=== PATIENT | male | born 1950 | race Caucasian/White ===

== ENCOUNTER 2018-08-15 19:42 | Inpatient (IN) ==
[2018-08-15 20:33] LABS: Basophils # (auto) 0.02 K/uL (0-0.2); Basophils % (auto) 0.3 %; Eosinophils # (auto) 0.12 K/uL (0-0.5); Eosinophils % (auto) 1.9 %; Hematocrit (blood only) 38.4 % (42-52); Immature Granulocytes # (auto) 0.02 K/uL (0.00-0.02); Immature Granulocytes % (auto) 0.3 %; Lymphocytes # (auto) 1.06 K/uL (1.2-3.4); Lymphocytes % (auto) 16.5 %; Mean Corpuscular Hgb Conc 33.9 g/dL (32-36); Mean Corpuscular Volume 90.6 fL (80-100); Mean Platelet Volume 11.2 fL (7.4-10.4); Monocytes # (auto) 0.62 K/uL (0.11-0.59); Monocytes % (auto) 9.7 %; Neutrophils # (auto) 4.58 K/uL (1.4-6.5); Neutrophils % (auto) 71.3 %; Platelet Count 133 K/uL (130-400); RDW Coefficient of Variation 13.4 % (11.5-14.5); RDW Standard Deviation 44.2 fL (36.4-46.3); Red Blood Count 4.24 M/uL (4.7-6.1); White Blood Count 6.42 K/uL (4.8-10.8)
[2018-08-15 20:41] LABS: Alanine Aminotransferase 24 U/L (12-78); Albumin Level 3.3 gm/dl (3.4-5.0); Aspartate Aminotransferase 18 U/L (15-37); BUN Creatinine Ratio 15.2 (10-20); Blood Urea Nitrogen 20 mg/dl (7-18); Calcium 8.8 mg/dl (8.5-10.1); Carbon Dioxide 28 mmol/L (21-32); Chloride 108 mmol/L (98-107); Est GFR (African American) 64.2; Est GFR (Non-African American) 55.4; Glucose 107 mg/dl (70-99); Magnesium 2.2 mg/dl (1.8-2.4); Potassium 3.5 mmol/L (3.5-5.1); Sodium 142 mmol/L (136-145)
--- NOTE | 2018-08-15 20:44 | CT Scan Report ---
CT head/brain wo con CT DOSE: 537.48 mGy.cm HISTORY: Trauma. Mental status change. fall, posterior impact TECHNIQUE: Multiaxial CT images of the head were performed without the use of intravenous contrast. A dose lowering technique was utilized adhering to the principles of ALARA. Comparison: None. Findings: The paranasal sinuses and mastoid air cells are clear. The calvarium and skull base are int act. The ventricles and sulci are within normal limits. There is no mass, hematoma, midline shift, or acute infarct. Impression: No acute intracranial abnormality. The above report was generated using voice recognition software. It may contain grammatical, syntax or spelling errors. Electronically signed by: Derrick Esteves M.D. 08/15/2018 8:43 PM
[2018-08-15 20:52] LABS: Albumin Globulin Ratio 1.2 (0.9-2); Alkaline Phosphatase 70 U/L (45-117); Bilirubin,Total 0.9 mg/dl (0.2-1); Globulin 2.7 gm/dl (2.5-4.0); Troponin I < 0.015 ng/ml (0-0.045)
--- NOTE | 2018-08-15 21:03 | XRay Report ---
XR ribs LT min 3V w CXR1V CLINICAL HISTORY: fall, left lat rib pain trauma. Pain. COMPARISON STUDY: No previous studies for comparison. FINDINGS: Probable nondisplaced cortical fracture anterior left 11th rib. This appears to be in the m idaxillary line. Remaining ribs are unremarkable. The lungs are considered clear. No evidence of pneu mothorax. IMPRESSION: Nondisplaced cortical fracture anterior left 11th rib. No evidence pneumothorax. The above report was generated using voice recognition software. It may contain grammatical, syntax or spelling errors. Electronically signed by: Derrick Esteves M.D. 08/15/2018 9:01 PM
[2018-08-15] MEDS ORDERED: MoRPHine SULFATE 4 MG/ML 1 ML CARP\\VIAL IV STA (21:16)
[2018-08-15] MEDS ORDERED: ONDANSETRON INJ 2 MG/ML 2 ML VIAL IV STA (21:16)
--- NOTE | 2018-08-15 22:51 | History & Physical Report ---
Date of Service August 15, 2018 Assessment & Plan (1) Syncope: Likely secondary to orthostasis given EMS account of low BP at home Rule out symptomatic bradycardia given history of chronic bradycardia Traumatic rib fracture secondary to fall CAD status post stent hx CVA hypertension, BP on the lower side Chronic anemia, hemoglobin at baseline past tobacco abuse OBS Medical telemetry Check orthostatic vitals, IVF hold antihypertensives for now TTE RE syncope Cardiology consult RE syncope, chronic bradycardia, home beta-alice use for CAD hx Analgesia, Lidoderm patch trial for traumatic left rib fracture DVT prophylaxis. Lovenox subcu Full code History of Present Illness Chief Complaint: Syncope, fall Primary Care Provider: Derrick Vasquez MD History obtained from patient and records. Medical history significant for CAD status post stent, CVA, hypertension, chronic bradycardia, past tobacco abuse, chronic anemia baseline hemoglobin 13. Recent confinement August 2009 for CVA. Patient was cooking at home yesterday when he felt dizzy ,lightheaded, subsequently fell backwards. Possible blackout as per patient. Patient woke up with achy pleuritic left-sided chest pain following fall. No SOB. No tongue biting, no incontinence. No previous episodes. Patient thinks he did not eat too well yesterday secondary to being busy with housework in the morning. Patient was awake when found him after she heard a thump from the other room. BP noted to be low as per EMS account upon arrival. 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 Allergies Allergy/AdvReac Type Severity Reaction Status Date / Time No Known Allergies Allergy Verified 08/15/18 20:07 Home Medications Home Medications Medication Instructions Recorded Confirmed Type aspirin 325 mg PO DAILY 08/15/18 08/15/18 History citalopram 20 mg PO DAILY 08/15/18 08/15/18 History gabapentin 300 mg PO TID 08/15/18 08/15/18 History lisinopril 10 mg PO DAILY 08/15/18 08/15/18 History metoprolol succinate 25 mg PO DAILY 08/15/18 08/15/18 History rosuvastatin 40 mg PO DAILY 08/15/18 08/15/18 History Past Med/Surg History Medical History CVA (cerebral vascular accident) Heart attack CAD (coronary artery disease) Surgical History History of coronary artery stent placement Social History Preferred Language: Malaysian Communication Ability: Effective Automotive Assembler Required: No Beliefs That Will Affect Care: None Current Living Situation: Spouse Other Information That Helps Us Care for You: No Feels Safe at Home: Yes Safety Concerns: Feels Safe At This Time Smoking Status: Former smoker Hx Alcohol Use: No Hx Substance Use: No Review of Systems As per HPI, all 10 systems reviewed, all other ROS negative Physical Exam Vital Signs (Past 24 Hours): Last Vital Signs Temp 36.5 C 08/15/18 19:48 Pulse 48 L 08/15/18 22:47 Resp 16 08/15/18 22:47 BP 109/73 08/15/18 22:47 Pulse Ox 96 08/15/18 22:47 Physical Exam: GENERAL: Comfortable, pleasant, no respiratory distress SKIN: Pallor, warm HEENT: Partial alopecia, bespectacled, pale palpebral conjunctivae, no ptosis, dry buccal mucosa NECK : Supple, no tenderness CHEST : Decreased breath sounds, tenderness left chest wall HEART : Bradycardic, no obvious murmurs ABDOMEN: Some distention, nontender EXTREMITIES : No LE swelling/tenderness, no other conspicuous deformities noted NEUROLOGIC : Coherent, no facial asymmetry, no other gross focality Results & Data Laboratory Results Laboratory Results WBC 6.42 K/uL (4.8-10.8) 08/15/18 19:40 RBC 4.24 M/uL (4.7-6.1) L 08/15/18 19:40 Hgb 13.0 g/dL (14.0-18.0) L 08/15/18 19:40 Hct 38.4 % (42-52) L 08/15/18 19:40 MCV 90.6 fL (80-100) 08/15/18 19:40 MCH 30.7 pg (25-34) 08/15/18 19:40 MCHC 33.9 g/dL (32-36) 08/15/18 19:40 RDW Std Deviation 44.2 fL (36.4-46.3) 08/15/18 19:40 RDW Coeff of Renetta 13.4 % (11.5-14.5) 08/15/18 19:40 Plt Count 133 K/uL (130-400) 08/15/18 19:40 MPV 11.2 fL (7.4-10.4) H 08/15/18 19:40 Immature Gran % (Auto) 0.3 % 08/15/18 19:40 Neut % (Auto) 71.3 % 08/15/18 19:40 Lymph % (Auto) 16.5 % 08/15/18 19:40 Hickman % (Auto) 9.7 % 08/15/18 19:40 Eos % (Auto) 1.9 % 08/15/18 19:40 Baso % (Auto) 0.3 % 08/15/18 19:40 Immature Gran # (Auto) 0.02 K/uL (0.00-0.02) 08/15/18 19:40 Neut # (Auto) 4.58 K/uL (1.4-6.5) 08/15/18 19:40 Lymph # (Auto) 1.06 K/uL (1.2-3.4) L 08/15/18 19:40 Hickman # (Auto) 0.62 K/uL (0.11-0.59) H 08/15/18 19:40 Eos # (Auto) 0.12 K/uL (0-0.5) 08/15/18 19:40 Baso # (Auto) 0.02 K/uL (0-0.2) 08/15/18 19:40 Sodium 142 mmol/L (136-145) 08/15/18 19:40 Potassium 3.5 mmol/L (3.5-5.1) 08/15/18 19:40 Chloride 108 mmol/L (98-107) H 08/15/18 19:40 Carbon Dioxide 28 mmol/L (21-32) 08/15/18 19:40 Anion Gap 5.0 (3-11) 08/15/18 19:40 BUN 20 mg/dl (7-18) H 08/15/18 19:40 Creatinine 1.32 mg/dl (0.6-1.4) 08/15/18 19:40 Est Cr Clr Drug Dosing 57.0 ml/min 08/15/18 19:40 Est GFR ( Amer) 64.2 08/15/18 19:40 Est GFR (Non-Af Amer) 55.4 08/15/18 19:40 BUN/Creatinine Ratio 15.2 (10-20) 08/15/18 19:40 Glucose 107 mg/dl (70-99) H 08/15/18:40 Calcium 8.8 mg/dl (8.5-10.1) 08/15/18:40 Magnesium 2.2 mg/dl (1.8-2.4) 08/15/18:40 Total Bilirubin 0.9 mg/dl (0.2-1) 08/15/18 19:40 AST 18 U/L (15-37) 08/15/18 19:40 ALT 24 U/L (12-78) 08/15/18 19:40 Alkaline Phosphatase 70 U/L (45-117) 08/15/18:40 Troponin I < 0.015 ng/ml (0-0.045) 08/15/18 19:40 Total Protein 6.0 gm/dl (6.4-8.2) L 08/15/18:40 Albumin 3.3 gm/dl (3.4-5.0) L 08/15/18:40 Globulin 2.7 gm/dl (2.5-4.0) 08/15/18 19:40 Albumin/Globulin Ratio 1.2 (0.9-2) 08/15/18 19:40 TSH 4.360 uIu/ml (0.300-4.500) 08/15/18 19:40 Diagnostic Findings Chest x-ray showed nondisplaced cortical fracture anterior left 11th rib. No evidence pneumothorax. CT head: No acute pathology EKG as per my interpretation : Rate 50, sinus bradycardia, T wave flattening, septal leads (1) Syncope Syncope type: unspecified Qualified Code(s): R55 - Syncope and collapse
[2018-08-15] MEDS ORDERED: HYDROmorphone INJ 0.5 MG/0.5 ML SYR IV PRN (22:54)
[2018-08-15] MEDS ORDERED: POTASSIUM CHLORIDE 20 MEQ TABCR PO STA (22:54)
[2018-08-15] MEDS ORDERED: ACETAMINOPHEN 325 MG TAB PO PRN (22:54)
[2018-08-15] MEDS ORDERED: KETOROLAC TROMETHAMINE 15 MG/ML VIAL IV ONE (22:54)
[2018-08-15] MEDS ORDERED: PROCHLORPERAZINE 5 MG in SYRINGE 4 ML IV PRN (22:54)
[2018-08-15] MEDS ORDERED: KETOROLAC TROMETHAMINE 15 MG/ML VIAL IV PRN (23:00)
[2018-08-15] MEDS ORDERED: ATROPINE SULFATE 0.1 MG/ML 5ML SYR IV PRN (23:00)
[2018-08-15] MEDS ORDERED: LACTATED RINGER'S 1,000 ML IV ONE (23:45)
[2018-08-16 00:34] LABS: Prothrombin Time 10.6 Seconds (9.0-12.0)
[2018-08-16] MEDS: LIDOCAINE 5% 1 PATCH TD SCH ×2 (00:45→21:17)
--- NOTE | 2018-08-16 02:58 | Emergency Department Note ---
Entered by Savannah Thomas acting as a scribe for Miguel A Treadwell MD ED Provider Note CHIEF COMPLAINT: Fall HISTORY OF PRESENT ILLNESS: The patient is a 68 year old presenting to the Emergency Department complaining of an episode of a fall starting prior to arrival. The nurse reports that the patient was found on his bedroom floor. She states that the patient fell from a standing position and hit his head off of a chair. She notes that the patient did not lose consciousness but his head hurts. The patient reports that he felt dizzy very abruptly and fell. He states that he hit the back of his head upon his fall and now the back of his head hurts. He notes that his left ribs hurt. The patients reports that the patient has been falling more frequently and she partially attributes this to his right knee pain. She states that the patients right knee pain is chronic and that he usually smokes marijuana that helps his pain. She adds that the patient smoked marijuana PLATINUM SMITH for his knee pain . The patient reports that he received no treatments PLATINUM SMITH for his current symptoms. He states that he normally takes Aspirin and Metoprolol. He notes that he sees Dr. Pedro Graham PCP and Dr. Milian [facility] comprehensive ophthalmologist. Pt denies LOC, fevers, chills, diaphoresis, visual changes, neck pain, chest pain, breathing difficulties, nausea, vomiting, abdominal pain, back pain, melena, hematochezia, urinary symptoms, numbness, lymphadenopathy, rash, or other complaints. REVIEW OF SYSTEMS: See HPI for pertinent positives and negatives. A total of ten systems were reviewed and were otherwise negative. PMHx/PSHx: CVA, CAD, Heart attack. History of coronary artery stent placement. SOCIAL HISTORY: Patient lives at home. Former smoker. PHYSICAL EXAM: GENERAL: Awake, alert, well-appearing, in no distress HENT: Normocephalic. Oropharynx unremarkable. Small hematoma on the occiput. EYES: Normal conjunctiva. Sclera non-icteric. NECK: Inspection normal. Non-tender. Supple. No nuchal rigidity. FROM. No masses. RESPIRATORY: Clear to auscultation. No wheezes. No rales. Normal respiratory effort. CARDIAC: Bradycardic rate. Normal rhythm. No murmurs. No rubs. Extremities warm and well perfused. Pulses equal. No JVD. GI: Soft, non-distended. No tenderness to palpation. No rebound or guarding. No masses. RECTAL: Deferred. MUSCULOSKELETAL: Left anterior lateral rib tenderness. The back is symmetrical on inspection without obvious abnormality. There is no CVA tenderness to palpati on. No joint edema. LOWER EXTREMITIES: Calves are equal size bilaterally and non-tender. No edema. N o discoloration. NEURO: Normal sensorium. No sensory or motor deficits noted. SKIN: No rash or jaundice noted. EMERGENCY DEPARTMENT COURSE: 1946: The patient was evaluated in room A12B, and a complete history and physical examination were performed. 2199: I reevaluated the patient at this time. 2329: I reviewed the patient's case with Dr. Tommie Graham Hospitalist. He will evaluate the patient for further management. MEDICAL DECISION MAKING: The patient's history was concerning for abrupt onset of dizziness and nearly passing out. Patient also struck his head and left ribs. Differential diagnosis: Etiologies such as infection, hypoglycemia, electrolyte abnormalities, cardiac sources, intracerebral event, toxicologic, neurologic, as well as others were entertained. Physical examination: As above. No neck pain. ER treatment provided: IV morphine IV Zofran On reassessment the patient felt better. Diagnostics interpretation by me: ECG: No acute ischemia or dysrhythmia. The labs revealed an unremarkable CBC and chemistry panel. Imaging studies: Rib series reveals a left-sided rib fracture. CT imaging of the head is negative. The patient had abrupt onset of dizziness and near syncope. He was found to be hypotensive per EMS. Currently he is doing much better. The patient unfortunately suffered a rib fracture. He was treated with morphine and Zofran for this. Given the sudden onset of symptoms causing his collapse I discussed further evaluation in the hospital. The patient was in agreement. Consultation: A consultation was placed with the hospitalist. The case was discussed and diagnostics were reviewed. The patient was evaluated in the ER for further treatment. IMPRESSION: Syncope, Hypotension, Closed Head Injury, Left rib fracture PLAN: Being Evaluated by Hospitalist The scribe's documentation has been prepared under my direction and personally reviewed by me in its entirety. I confirm that the note above accurately reflects all work, treatment, procedures, and medical decision making performed by me. Impression & Plan Syncope, Hypotension, CHI (closed head injury), Left rib fracture Past Med/Surg History Medical History CVA (cerebral vascular accident) Heart attack CAD (coronary artery disease) Surgical History History of coronary artery stent placement Social History Preferred Language: Khmer Communication Ability: Effective Criminal Justice Instructor Required: No Beliefs That Will Affect Care: None Current Living Situation: Spouse Other Information That Helps Us Care for You: No Feels Safe at Home: Yes Safety Concerns: Feels Safe At This Time Smoking Status: Former smoker Hx Alcohol Use: No Hx Substance Use: No Results & Data Vital Signs Vital Signs - 24 hr 08/15/18 19:48 08/15/18 21:00 08/15/18 21:23 Temperature 36.5 C Temperature Source Oral Sepsis Recent Fever Within 48 Hours No Sepsis New/Unexplained Change in Mental Status No Sepsis Action Taken by Nursing No Action Required Pulse Rate - Lying 49 L Pulse Rate - Sitting 59 L Pulse Rate - Standing 60 Pulse Rate 53 L Pulse Rate [Right Finger] 78 Pulse Rhythm Regular Pulse Rhythm [Right Finger] Pulse Strength Normal Pulse Strength [Right Finger] Respiratory Rate 16 18 Respiratory Effort / Characteristics Non-Labored Spontaneous Respiratory Depth Normal Normal Respiratory Pattern Regular Blood Pressure - Lying 100/62 Blood Pressure - Sitting 100/71 Blood Pressure- Standing 102/57 L Blood Pressure 107/62 Blood Pressure [Right Arm] Blood Pressure [Right Radial Artery] 108/62 Blood Pressure Mean 77 Blood Pressure Mean [Right Arm] Blood Pressure Mean [Right Radial Artery] 77 Blood Pressure Position Sitting Blood Pressure Position [Right Radial Artery] Pulse Oximetry 98 95 Oxygen Delivery Method Room Air Room Air 08/15/18 21:28 08/15/18 22:47 08/15/18 23:41 Temperature 36.4 C L Temperature Source Oral Sepsis Recent Fever Within 48 Hours Sepsis New/Unexplained Change in Mental Status Sepsis Action Taken by Nursing Pulse Rate - Lying Pulse Rate - Sitting Pulse Rate - Standing Pulse Rate Pulse Rate [Right Finger] 60 48 L 51 L Pulse Rhythm Pulse Rhythm [Right Finger] Regular Regular Pulse Strength Pulse Strength [Right Finger] Normal Normal Respiratory Rate 16 16 24 Respiratory Effort / Characteristics Non-Labored Spontaneous Non-Labored Spontaneous Respiratory Depth Normal Normal Respiratory Pattern Regular Regular Blood Pressure - Lying Blood Pressure - Sitting Blood Pressure- Standing Blood Pressure Blood Pressure [Right Arm] 160/93 H Blood Pressure [Right Radial Artery] 102/57 L 109/73 160/93 H Blood Pressure Mean Blood Pressure Mean [Right Arm] 115 Blood Pressure Mean [Right Radial Artery] 72 85 115 Blood Pressure Position Blood Pressure Position [Right Radial Artery] Standing Sitting Pulse Oximetry 97 96 96 Oxygen Delivery Method Room Air Room Air Room Air 08/16/18 00:28 Temperature Temperature Source Sepsis Recent Fever Within 48 Hours Sepsis New/Unexplained Change in Mental Status Sepsis Action Taken by Nursing Pulse Rate - Lying Pulse Rate - Sitting Pulse Rate - Standing Pulse Rate 48 L Pulse Rate [Right Finger] Pulse Rhythm Pulse Rhythm [Right Finger] Pulse Strength Pulse Strength [Right Finger] Respiratory Rate Respiratory Effort / Characteristics Respiratory Depth Respiratory Pattern Blood Pressure - Lying Blood Pressure - Sitting Blood Pressure- Standing Blood Pressure Blood Pressure [Right Arm] Blood Pressure [Right Radial Artery] Blood Pressure Mean Blood Pressure Mean [Right Arm] Blood Pressure Mean [Right Radial Artery] Blood Pressure Position Blood Pressure Position [Right Radial Artery] Pulse Oximetry Oxygen Delivery Method Home Medications Current Medication List: was personally reviewed by me Laboratory Data Attestation: I reviewed the patient's lab results. Result diagrams: 08/15/18 19:40 08/15/18 19:40 Lab Results 08/15/18 08/15/18 08/15/18 Range/Units 19:40 19:40 19:40 WBC 6.42 (4.8-10.8) K/uL RBC 4.24 L (4.7-6.1) M/uL Hgb 13.0 L (14.0-18.0) g/dL Hct 38.4 L (42-52) % MCV 90.6 (80-100) fL MCH 30.7 (25-34) pg MCHC 33.9 (32-36) g/dL RDW Std Deviation 44.2 (36.4-46.3) fL RDW Coeff of Renetta 13.4 (11.5-14.5) % Plt Count 133 (130-400) K/uL MPV 11.2 H (7.4-10.4) fL Immature Gran % (Auto) 0.3 % Neut % (Auto) 71.3 % Lymph % (Auto) 16.5 % Waller % (Auto) 9.7 % Eos % (Auto) 1.9 % Baso % (Auto) 0.3 % Immature Gran # (Auto) 0.02 (0.00-0.02) K/uL Neut # (Auto) 4.58 (1.4-6.5) K/uL Lymph # (Auto) 1.06 L (1.2-3.4) K/uL Waller # (Auto) 0.62 H (0.11-0.59) K/uL Eos # (Auto) 0.12 (0-0.5) K/uL Baso # (Auto) 0.02 (0-0.2) K/uL PT 10.6 (9.0-12.0) Seconds INR 1.0 (0.9-1.1) Sodium 142 (136-145) mmol/L Potassium 3.5 (3.5-5.1) mmol/L Chloride 108 H (98-107) mmol/L Carbon Dioxide 28 (21-32) mmol/L Anion Gap 5.0 (3-11) BUN 20 H (7-18) mg/dl Creatinine 1.32 (0.6-1.4) mg/dl Est Cr Clr Drug Dosing 57.0 ml/min Est GFR ( Amer) 64.2 Est GFR (Non-Af Amer) 55.4 BUN/Creatinine Ratio 15.2 (10-20) Glucose 107 H (70-99) mg/dl Calcium 8.8 (8.5-10.1) mg/dl Magnesium 2.2 (1.8-2.4) mg/dl Total Bilirubin 0.9 (0.2-1) mg/dl AST 18 (15-37) U/L ALT 24 (12-78) U/L Alkaline Phosphatase 70 (45-117) U/L Troponin I < 0.015 (0-0.045) ng/ml Total Protein 6.0 L (6.4-8.2) gm/dl Albumin 3.3 L (3.4-5.0) gm/dl Globulin 2.7 (2.5-4.0) gm/dl Albumin/Globulin Ratio 1.2 (0.9-2) TSH 4.360 (0.300-4.500) uIu/ml Administered Medications Lactated Ringer's (Lr) 1,000 mls @ 80 mls/hr IV .[id number] ONE Stop: 08/16/18 12:14 Last Admin: 08/16/18 00:45 Dose: 80 mls/hr Documented by: [id number] Ketorolac Tromethamine (Toradol) 15 mg IV Q6H PRN PRN Reason: Pain Stop: 08/20/18 22:59 Last Admin: 08/16/18 00:38 Dose: 15 mg Documented by: [id number] Lidocaine (Lidoderm 5%) 1 patch TD HS HOMERO Stop: 09/14/18 23:44 Last Admin: 08/16/18 00:45 Dose: 1 patch Documented by: [id number] Discontinued Medications Ketorolac Tromethamine (Toradol) 15 mg IV NOW ONE Stop: 08/15/18 22:55 Last Admin: 08/16/18 00:38 Dose: Not Given Documented by: [id number] Morphine Sulfate (Morphine Sulfate) 4 mg IV NOW STA Stop: 08/15/18 21:17 Last Admin: 08/15/18 21:28 Dose: 4 mg Documented by: [id number] Ondansetron HCl (Zofran) 4 mg IV NOW STA Stop: 08/15/18 21:17 Last Admin: 08/15/18 21:28 Dose: 4 mg Documented by: [id number] Potassium Chloride (Klor-Con M20) 40 meq PO NOW STA Stop: 08/15/18 22:55 Last Admin: 08/16/18 01:38 Dose: 40 meq Documented by: [id number] Imaging Data Radiologist's Impression: Radiology results as stated below per my review and the radiologist's interpretation: CT head/brain wo con CT DOSE: 537.48 mGy.cm HISTORY: Trauma. Mental status change. fall, posterior impact TECHNIQUE: Multiaxial CT images of the head were performed without the use of intravenous contrast. A dose lowering technique was utilized adhering to the principles of ALARA. Comparison: None. Findings: The paranasal sinuses and mastoid air cells are clear. The calvarium and skull base are intact. The ventricles and sulci are within normal limits. There is no mass, hematoma, midline shift, or acute infarct. Impression: No acute intracranial abnormality. The above report was generated using voice recognition software. It may contain grammatical, syntax or spelling errors. Electronically signed by: Derrick Esteves M.D. 08/15/2018 8:43 PM XR ribs LT min 3V w CXR1V CLINICAL HISTORY: fall, left lat rib pain trauma. Pain. COMPARISON STUDY: No previous studies for comparison. FINDINGS: Probable nondisplaced cortical fracture anterior left 11th rib. This appears to be in the midaxillary line. Remaining ribs are unremarkable. The lungs are considered clear. No evidence of pneumothorax. IMPRESSION: Nondisplaced cortical fracture anterior left 11th rib. No evidence pneumothorax. The above report was generated using voice recognition software. It may contain grammatical, syntax or spelling errors. Electronically signed by: Derrick Esteves M.D. 08/15/2018 9:01 PM ECG Data Attestation: I personally reviewed and interpreted this ECG as follows: Indication: weakness Rate (beats per minute): 51 Rhythm: sinus bradycardia Findings: no PAC, no PVC, no ST depression and no ST elevation Blood Pressure Blood Pressure Findings: Low blood pressure Blood Pressure Disposition: further management by hospitalist Discharge Plan Visit Data *Final* Discharge Date/Time: 08/15/18 23:14 Chief Complaint: Fall Stated Complaint: FALLS, HYPOTENSION, HEAD PAIN ED Provider: Miguel A Treadwell Discharge Problem: Syncope, Hypotension, CHI (closed head injury), Left rib fracture Patient Disposition: Admitted As Inpatient Discharge Instructions Interventions: ED Discharge Assessment Last Done: 08/15/18 23:14 Discharge Problem: Syncope Qualifiers: Syncope type: unspecified Qualified Code(s): R55 - Syncope and collapse Hypotension Qualifiers: Hypotension type: unspecified hypotension type Qualified Code(s): I95.9 - Hypotension, unspecified CHI (closed head injury) Qualifiers: Encounter type: initial encounter Qualified Code(s): S09.90XA - Unspecified injury of head, initial encounter Left rib fracture Qualifiers: Encounter type: initial encounter Rib fracture type: single rib Fracture type: closed Qualified Code(s): S22.32XA - Fracture of one rib, left side, initial encounter for closed fracture The scribe's documentation has been prepared under my direction and personally reviewed by me in its entirety. I confirm that the note above accurately reflects all work, treatment, procedures, and medical decision making performed by me.
[2018-08-16 07:29] LABS: Basophils # (auto) 0.01 K/uL (0-0.2); Basophils % (auto) 0.2 %; Eosinophils # (auto) 0.23 K/uL (0-0.5); Eosinophils % (auto) 5.1 %; Hematocrit (blood only) 36.5 % (42-52); Hemoglobin 12.3 g/dL (14.0-18.0); Immature Granulocytes # (auto) 0.01 K/uL (0.00-0.02); Immature Granulocytes % (auto) 0.2 %; Lymphocytes # (auto) 1.45 K/uL (1.2-3.4); Lymphocytes % (auto) 31.9 %; Mean Corpuscular Hgb Conc 33.7 g/dL (32-36); Mean Corpuscular Volume 89.9 fL (80-100); Mean Platelet Volume 11.2 fL (7.4-10.4); Monocytes # (auto) 0.45 K/uL (0.11-0.59); Monocytes % (auto) 9.9 %; Neutrophils # (auto) 2.39 K/uL (1.4-6.5); Neutrophils % (auto) 52.7 %; Platelet Count 108 K/uL (130-400); RDW Coefficient of Variation 13.5 % (11.5-14.5); RDW Standard Deviation 44.1 fL (36.4-46.3); Red Blood Count 4.06 M/uL (4.7-6.1); White Blood Count 4.54 K/uL (4.8-10.8)
[2018-08-16 07:57] LABS: BUN Creatinine Ratio 16.8 (10-20); Calcium 7.9 mg/dl (8.5-10.1); Creatinine Clr Calc Pharmacy 67.9 ml/min; Est GFR (Non-African American) 69.9; Potassium 4.3 mmol/L (3.5-5.1)
[2018-08-16] MEDS ORDERED: PERFLUTREN LIPID MICROSPHERE (DEFINITY) IV ONE (08:18)
[2018-08-16] MEDS: TRAMADOL HCL 50 MG TABLET PO PRN ×2 (08:48→15:43)
[2018-08-16] MEDS: GABAPENTIN 300 MG CAP PO SCH ×3 (08:49→21:17)
[2018-08-16] MEDS: ENOXAPARIN INJ 30 MG/0.3 ML SYR SQ SCH (08:50)
[2018-08-16] MEDS: CITALOPRAM 20 MG TAB PO SCH (08:50)
[2018-08-16] MEDS: ROSUVASTATIN CALCIUM 20 MG TAB PO SCH (08:50)
[2018-08-16] MEDS: ASPIRIN 325 MG ECTAB PO SCH (08:51)
--- NOTE | 2018-08-16 09:37 | Cardiology Consultation ---
Date of Consultation August 16, 2018 Assessment & Plan (1) Syncope: He had an episode of severe presyncope or possibly syncope resulting in a fall, this was preceded by about 1 week of intermittent dizziness and falling. He apparently has a long history of bradycardia but I do not know if it is worse now. His heart rate is quite low and I suspect this contributed to the episode. It may be that there was some other factor as well (such as dehydration) but at the moment bradycardia seems to most likely underlying cause. It does not sound as though it was a tacky arrhythmia. An echo is pending, I would like to see his left ventricular function and look for wall motion abnormalities. There is no evidence that he had an acute cardiac event. (2) CAD (coronary artery disease): He has coronary disease based on history with stent placement 19 years ago at [facility]. Clinically he has been stable with no exertional symptoms. We will review his echo for left ventricular function and wall motion abnormalities. Based on his electrocardiogram I do not see a prior myocardial infarction although they do not always show up on electrocardiography. (3) Sinus bradycardia: He has a long history of sinus bradycardia however until now has not had symptoms suggesting symptomatic sinus bradycardia. Now I suspect his symptoms are related to it although I cannot be sure. In any case it would likely keep him from having some compensatory recent heart rate. With presyncope and falling and his heart rate as low as it is I think we need to consider a pacemaker. I agree with discontinuation of metoprolol, if his heart rate continues to be low (he is on a very low dose of metoprolol so I suspect we will not make a lot of difference) that I would recommend pacemaker implantation. History of Present Illness Reason for Consultation: Presyncope or possibly syncope Attending Physician: Paulo Henriquez MD History of Present Illness This is a very pleasant 68-year-old gentleman who saw Dr. simms 19 years ago after a heart attack by his history. That is long enough ago that I do not have records, including in our office. He describes having severe chest discomfort which he prayed would go away, it did not so he came into the emergency room and was sent to [facility] where he had a catheterization and 2 stents. All of this is per his history. He has been following with his PCP since with no recurrence of the symptoms. He is quite active, he has never had exertional chest discomfort and overall feels well in that regard. Over the last week or so he has been having intermittent lightheadedness, then he was standing and felt very faint and lightheaded and fell over. He recalls falling down but he tells me he was powerless to do anything about it. It sounds as though this was a severe presyncopal event rather than true syncope although it was close. He has been taking metoprolol succinate 25 mg daily and was noted to be in sinus bradycardia here. He is reported to have been hypotensive when EMS arrived to bring him to the hospital, but I do not see any documentation of his blood pressure. Since admission he has felt well, he has no lightheadedness or dizziness but has remained in bed. Allergies Allergy/AdvReac Type Severity Reaction Status Date / Time No Known Allergies Allergy Verified 08/15/18 20:07 Home Medications Home Medications Medication Instructions Recorded Confirmed Type aspirin 325 mg PO DAILY 08/15/18 08/15/18 History citalopram 20 mg PO DAILY 08/15/18 08/15/18 History gabapentin 300 mg PO TID 08/15/18 08/15/18 History lisinopril 10 mg PO DAILY 08/15/18 08/15/18 History metoprolol succinate 25 mg PO DAILY 08/15/18 08/15/18 History rosuvastatin 40 mg PO DAILY 08/15/18 08/15/18 History Patient History Medical History CVA (cerebral vascular accident) Heart attack CAD (coronary artery disease) Surgical History History of coronary artery stent placement Social History Preferred Language: [place] Communication Ability: Effective Neonatal Pediatric Nurse Required: No Beliefs That Will Affect Care: None Current Living Situation: Spouse Other Information That Helps Us Care for You: No Feels Safe at Home: Yes Safety Concerns: Feels Safe At This Time Smoking Status: Former smoker Hx Alcohol Use: No Hx Substance Use: No Review of Systems Notable for lightheadedness and dizziness for about a week, no palpitations, one episode of presyncope or syncope as described. No exertional symptoms, no dyspnea on exertion or exertional chest pain. No orthopnea or PND or peripheral edema. No GI complaints, no bleeding. No neurologic complaints such as TIA or stroke symptoms. Other systems negative. Physical Exam Vital Signs (Past 24 Hours): Last Vital Signs Temp 36.8 C 08/16/18 04:00 Pulse 43 L 08/16/18 07:26 Resp 20 08/16/18 04:00 BP 135/82 08/16/18 09:07 Pulse Ox 98 08/16/18 04:00 Physical Exam: Constitutional: Alert, cooperative and in no distress. HEENT: Unremarkable Neck: No jugular venous distention, carotid pulses are normal and equal bilaterally without bruits. Pulmonary: Clear to auscultation bilaterally. Cardiac: Regular rhythm with no murmur, gallop or rub. Abdomen: Soft, nontender with normal bowel sounds. Extremities: No edema. Distal pulses intact. Neurologic: No focal findings. Gait is steady. Skin: No rash, ecchymoses or petechiae. Results & Data Diagnostic Findings ECG: On admission sinus rhythm with a heart rate of 57 bpm. This morning sinus rhythm with a heart rate of 51 bpm. No acute changes. Telemetry: Predominantly sinus bradycardia, overnight in the 40s with a low of 39 bpm. (1) Syncope Syncope type: unspecified Qualified Code(s): R55 - Syncope and collapse
--- NOTE | 2018-08-16 09:55 | Hospitalist Progress Note ---
Date of Service August 16, 2018 Delayed entry Date of service as noted above Assessment & Plan (1) Syncope: Possibly from orthostasis, bradycardia Lisinopril and metoprolol on hold Echocardiogram pending Arabic Professor consulted rib fracture, left hip secondary to fall Continue pain control Incentive spirometry CAD status post stent Continue aspirin Metoprolol on hold secondary to bradycardia hx CVA Continue aspirin hypertension BP on the lower side, management as noted above Chronic anemia, hemoglobin at baseline past tobacco abuse DVT prophylaxis. Lovenox subcu Full code Disposition Discharge to home medically stable and cleared by fire extinguisher charger Subjective Follow-up for syncope, rib fracture Resting in bed, not in distress Denies chestpain , shortness of breath, dizziness, presyncope Reports moderate to severe left rib pain Worse with movement No other pain in his body No other symptoms Physical Exam Vital Signs (Past 24 Hours): Last Vital Signs Temp 36.8 C 08/16/18 04:00 Pulse 43 L 08/16/18 07:26 Resp 20 08/16/18 04:00 BP 135/82 08/16/18 09:07 Pulse Ox 98 08/16/18 04:00 Physical Exam: General- oriented x 3, not in distress, speaks in sentences with no effort or accessory muscle use Head- atraumatic Eyes- PERRL, EOMI, anicteric ENT- oropharynx clear Neck- supple, no JVD, no adenopathy, no thyromegaly; carotids +2/2, no bruits appreciated Lungs- clear to auscultation bilaterally, no rales/wheezes Chest-mild tenderness on the left lateral rib area Heart-bradycardic , regular rhythm; no murmur, no gallop, no rub appreciated Abdomen- normal bowel sounds, nondistended, soft, nontender, no masses or hepatosplenomegaly Extremities- no pretibial edema, no calf tenderness; peripheral pulses intact Neuro- alert, oriented x 3; CN 2-12 grossly intact; motor 5/5 bilaterally; sensation 100% on all extremities; no other gross focal neurologic deficits Skin- warm & dry Results & Data Laboratory Results Laboratory Results - last 24 hr 08/16/18 21:15 Urine Color Yellow Urine Appearance Clear Urine pH 5.0 Ur Specific [place] 1.029 Urine Protein Negative Urine Glucose (UA) Negative Urine Ketones Negative Urine Blood Negative Urine Nitrite Negative Urine Bilirubin Negative Urine Urobilinogen Negative Ur Leukocyte Esterase Negative (1) Syncope Syncope type: unspecified Qualified Code(s): R55 - Syncope and collapse
[2018-08-16] MEDS: ACETAMINOPHEN 65 ML IV SCH ×2 (13:31→21:13)
[2018-08-16] MEDS ORDERED: INFLUENZA ADMINISTRATION CHARGE ONE (15:15)
[2018-08-16] MEDS ORDERED: PNEUMOCOCCAL POLYSACCHARIDES 25 MCG/0.5 ML VIAL/SYR IM ONE (15:15)
[2018-08-16] MEDS ORDERED: INFLUENZA VIRUS QUAD VACCINE 0.5 ML SYR IM ONE (15:15)
[2018-08-16] MEDS ORDERED: PNEUMOCOCCAL ADMINISTRATION CHARGE ONE (15:15)
[2018-08-16 22:08] LABS: Appearance Urine Clear (Clear); Bilirubin Urine Negative (Negative); Blood Urine Negative (Negative); Color Urine Yellow; Glucose Urine UA Negative (Negative); Ketones Urine Negative (Negative); Leukocyte Esterase Urine Negative (Negative); Nitrite Urine Negative (Negative); Protein Urine Negative (Negative); Specific Gravity Urine 1.029 (1.000-1.030); Urobilinogen Urine Negative (Negative)
[2018-08-17] MEDS: ACETAMINOPHEN 65 ML IV SCH ×3 (03:45→19:41)
[2018-08-17] MEDS: CITALOPRAM 20 MG TAB PO SCH (07:58)
[2018-08-17] MEDS: ASPIRIN 325 MG ECTAB PO SCH (07:58)
[2018-08-17] MEDS: GABAPENTIN 300 MG CAP PO SCH ×3 (07:58→21:56)
[2018-08-17] MEDS: ROSUVASTATIN CALCIUM 20 MG TAB PO SCH (07:59)
[2018-08-17] MEDS: TRAMADOL HCL 50 MG TABLET PO PRN (08:00)
[2018-08-17] MEDS: ENOXAPARIN INJ 30 MG/0.3 ML SYR SQ SCH (08:03)
--- NOTE | 2018-08-17 13:24 | Cardiology Progress Note ---
Date of Service August 17, 2018 Assessment & Plan (1) Syncope: He had an episode of severe presyncope or possibly syncope resulting in a fall, this was preceded by about 1 week of intermittent dizziness and falling. He apparently has a long history of bradycardia but I do not know if it is worse now. His heart rate is quite low and I suspect this contributed to the episode. It may be that there was some other factor as well (such as dehydration) but at the moment bradycardia seems to be the most likely underlying cause. It does not sound as though it was a tachyarrhythmia. An echo is unremarkable. There is no evidence that he had an acute cardiac event. (2) CAD (coronary artery disease): He has coronary disease based on history with stent placement 19 years ago at [place]. Clinically he has been stable with no exertional symptoms. Based on his electrocardiogram I do not see a prior myocardial infarction although they do not always show up on electrocardiography. (3) Sinus bradycardia: He has a long history of sinus bradycardia however until now has not had symptoms suggesting symptomatic sinus bradycardia. Now I suspect his symptoms were related to it although I cannot be sure. In any case beta-blockade or intrinsic sinus node dysfunction would likely keep him from having some compensatory increase in heart rate. With presyncope and falling and his heart rate as low as it is I think we need to consider a pacemaker. His heart rate has really not changed with discontinuation of metoprolol, and it was a very low dose. He would prefer not to have a pacemaker implanted now but is willing to consider it in the future. As long as we are not going to implant a pacemaker I see no reason to keep him here in the hospital. I can make sure that he comes in for 2-week follow-up visit if he goes home, but I suspect he will need a pacemaker at some point in the future. Subjective He has been feeling very well, he is not been very active but has had no further lightheadedness or dizziness since admission. Physical Exam Vital Signs (Past 24 Hours): Last Vital Signs Temp 36.4 C L 08/17/18 12:00 Pulse 46 L 08/17/18 12:00 Resp 18 08/17/18 12:00 BP 165/91 H 08/17/18 12:00 Pulse Ox 97 08/17/18 12:00 Physical Exam: Constitutional: Alert, cooperative and in no distress. Pulmonary: Clear to auscultation bilaterally. Cardiac: Regular slow rhythm with no murmur, gallop or rub. Abdomen: Soft, nontender with normal bowel sounds. Extremities: No edema. Skin: No rash, ecchymoses or petechiae. Results & Data Diagnostic Findings Telemetry: He continues to have sinus bradycardia, the heart rate is often in the 40s even at rest and in the high 30s at night. (1) Syncope Syncope type: unspecified Qualified Code(s): R55 - Syncope and collapse
--- NOTE | 2018-08-17 13:35 | Hospitalist Progress Note ---
Date of Service August 17, 2018 delayed entry date of service as noted above Assessment & Plan (1) Syncope: (1) Syncope: likely secondary to Symptomatic bradycardia Lisinopril and metoprolol on hold Echocardiogram noted Television Repairman consulted- Dr. Mancilla- recommends Pacemaker Placement- patient agreeable 11th rib fracture, left hip secondary to fall pain improving Continue pain control encouraged Incentive spirometry CAD status post stent Continue aspirin Metoprolol on hold secondary to bradycardia hx CVA Continue aspirin hypertension Lisinopril resumed Chronic anemia, hemoglobin at baseline past tobacco abuse DVT prophylaxis. Lovenox subcu Full code Disposition Discharge to home medically stable and cleared by nylon machine operator Subjective Follow-up for syncope, rib fracture resting in bed, comfortable denies dizziness, chest pain, palpitations rib apin improving, no dyspnea no other symptoms Physical Exam Vital Signs (Past 24 Hours): Last Vital Signs Temp 36.4 C L 08/17/18 12:00 Pulse 46 L 08/17/18 12:00 Resp 18 08/17/18 12:00 BP 165/91 H 08/17/18 12:00 Pulse Ox 97 08/17/18 12:00 Physical Exam: General- oriented x 3, not in distress, speaks in sentences with no effort or accessory muscle use Eyes- anicteric Neck- no JVD Lungs- clear breath sounds bilaterally, no rales/wheezes Heart-bradycardic, regular rhythm; no murmurs Abdomen- normal bowel sounds, nondistended, soft, nontender Extremities- no pretibial edema, no calf tenderness Neuro- alert, oriented x 3; no gross focal neurologic deficits Skin- warm & dry (1) Syncope Syncope type: unspecified Qualified Code(s): R55 - Syncope and collapse
[2018-08-17] MEDS: LISINOPRIL 10 MG TAB PO SCH (16:08)
[2018-08-17] MEDS: LIDOCAINE 5% 1 PATCH TD SCH (21:57)
[2018-08-18] MEDS: ACETAMINOPHEN 65 ML IV SCH ×3 (04:20→20:02)
[2018-08-18] MEDS ORDERED: CEFAZOLIN 2000MG 2,000 MG/15 ML SYR IV SCH ×2 (06:00)
[2018-08-18] MEDS: GABAPENTIN 300 MG CAP PO SCH ×3 (08:11→20:44)
[2018-08-18] MEDS: CITALOPRAM 20 MG TAB PO SCH (08:11)
[2018-08-18] MEDS: ASPIRIN 325 MG ECTAB PO SCH (08:12)
[2018-08-18] MEDS: LISINOPRIL 10 MG TAB PO SCH (08:12)
[2018-08-18] MEDS: ROSUVASTATIN CALCIUM 20 MG TAB PO SCH (08:12)
[2018-08-18] MEDS: TRAMADOL HCL 50 MG TABLET PO PRN ×2 (08:17→15:41)
--- NOTE | 2018-08-18 08:51 | Cardiology Progress Note ---
Date of Service August 18, 2018 Assessment & Plan (1) Syncope: He had an episode of severe presyncope or possibly syncope resulting in a fall, this was preceded by at least 1 week of intermittent dizziness and falling. He apparently has a long history of bradycardia but I do not know if it is worse now. His heart rate is quite low and I suspect this contributed to the episode. It may be that there was some other factor as well (such as dehydration) but at the moment bradycardia seems to be the most likely underlying cause. It does not sound as though it was a tachyarrhythmia and he has had no other arrhythmia on monitoring. An echo is unremarkable. There is no evidence that he had an acute cardiac event. (2) CAD (coronary artery disease): He has coronary disease based on his history with stent placement 19 years ago at [place]. Clinically he has been stable with no exertional symptoms. Based on his electrocardiogram I do not see a prior myocardial infarction although they do not always show up on electrocardiography. (3) Sinus bradycardia: He has a long history of sinus bradycardia however until recently has not had symptoms suggesting symptomatic sinus bradycardia. Now I suspect his symptoms were related to it although I cannot be sure. In any case beta- blockade or intrinsic sinus node dysfunction would likely keep him from having some compensatory increase in heart rate. With presyncope and falling and his heart rate as low as it is I think we need to consider a pacemaker. His heart rate has really not changed with discontinuation of metoprolol, and it was a very low dose. He has agreed to pacemaker implantation. I discussed the indications, procedure, risks and alternatives of pacemaker implantation with him and he understands and agrees to proceed. Consent obtained. I discussed sedation with him as well and he is agreeable. Consent obtained. Subjective No further dizziness or falling. He has agreed to pacemaker implantation today. Physical Exam Vital Signs (Past 24 Hours): Last Vital Signs Temp 36.7 C 08/18/18 07:54 Pulse 45 L 08/18/18 07:54 Resp 20 08/18/18 07:54 BP 161/84 H 08/18/18 07:54 Pulse Ox 95 08/18/18 07:54 Physical Exam: Constitutional: Alert, cooperative and in no distress. Pulmonary: Clear to auscultation bilaterally. Cardiac: Regular slow rhythm with no murmur, gallop or rub. Abdomen: Soft, nontender with normal bowel sounds. Extremities: No edema. Skin: No rash, ecchymoses or petechiae. Results & Data Diagnostic Findings Telemetry: Continued sinus bradycardia, heart rate in the 40s typically (1) Syncope Syncope type: unspecified Qualified Code(s): R55 - Syncope and collapse
[2018-08-18] MEDS: LACTATED RINGER'S 1,000 ML IV SCH (09:07)
--- NOTE | 2018-08-18 09:09 | Pre Anesthesia Assessment ---
Date of Service August 18, 2018 Pre Sedation Assessment Vital Signs Temp Pulse Pulse Pulse Resp BP BP 08/18/18 07:54 36.7 C 45 L 20 161/84 H 08/18/18 04:08 36.8 C 46 L 18 157/92 H 08/17/18 23:49 36.6 C 46 L 16 138/80 08/17/18 22:20 44 L 08/17/18 19:17 36.6 C 47 L 20 165/86 H 08/17/18 16:00 36.6 C 47 L 18 144/86 H 08/17/18 15:54 48 L 08/17/18 12:00 36.4 C L 46 L 18 165/91 H Pulse Ox 08/18/18 07:54 95 08/18/18 04:08 94 08/17/18 23:49 97 08/17/18 22:20 08/17/18 19:17 96 08/17/18 16:00 96 08/17/18 15:54 08/17/18 12:00 97 Cardiovascular RRR, no murmur, no edema + bradycardic Respiratory normal respiratory effort, lungs clear to auscultation Pre-Sedation Airway Assessment Smoking Status: Former smoker Hx Sleep Apnea: No Hx Difficult Intubation: No Short, Thick Neck: No Thyromental Distance: > or= 3.5 Finger Breadths Mallampati Class: I Class III NPO Status Date of Last Intake of Fluids: 08/17/18 Date of Last Intake of Solid Food: 08/17/18 Procedure Planning Contraindications for Sedation: none Current Medications Reviewed: Yes Notes The planned sedation has been discussed with the patient. Informed Consent was obtained. I have identified the patient, determined the appropriateness of sedation and have assessed the patient immediately prior to the procedure. All medicine(s) and interventions are by my order.
[2018-08-18] MEDS ORDERED: BACITRACIN OINT 0.9 GM PKT ONE (09:28)
[2018-08-18] MEDS ORDERED: BACITRACIN INJ 50,000 UNIT VIAL ONE (09:29)
[2018-08-18] MEDS ORDERED: LIDOCAINE HCL 1% 20 ML VIAL ONE (09:29)
[2018-08-18] MEDS ORDERED: MIDAZOLAM HCL 5 MG/ML 1 ML VIAL ONE (09:31)
[2018-08-18] MEDS ORDERED: fentaNYL citrate 100 MCG/2 ML VIAL ONE (09:31)
[2018-08-18] MEDS ORDERED: CEFAZOLIN 250 MG/ML 1 GM VIAL ONE (09:35)
[2018-08-18] MEDS ORDERED: ACETAMINOPHEN 325 MG TAB PO PRN (11:12)
--- NOTE | 2018-08-18 11:12 | Operative Report ---
Post Operative Report Pre & Post Diagnosis Operation Date: 08/18/18 08:00 Preoperative diagnosis: Symptomatic sinus bradycardia Postoperative diagnosis: Same Procedure Operation Date: 08/18/18 08:00 Actual Procedures p Pacer with A/V Leads (Dual) - Jose Mancilla MD Surgeon Jose Mancilla MD Framing Mechanic None Estimated Blood Loss 30 Findings Consistent with Post-Op Diagnosis Good lead position, good measurements Specimens None Complications none Disposition Accompanied Patient To Recovery: No Disposition: PCU Description of Procedure After obtaining informed consent for the procedure, the patient was brought to the laboratory and prepped and draped in the standard sterile manner. The left prepectoral region was anesthetized with 1% lidocaine local anesthetic and left axillary venipuncture was performed by percutaneous technique and a guidewire placed through the left subclavian vein into the superior vena cava. The area was further infiltrated with 1% lidocaine local anesthetic and a 5 cm incision was made parallel to the left clavicle and 2 cm below it and carried down to the anterior pectoralis fascia. A pacemaker pocket was formed by blunt dissection anterior to the pectoralis fascia and a bacitracin-soaked sponge (50,000 units in 50 cc normal saline solution) was placed in the pocket. An 8 [employer] Medtronic lead introducer was placed over the guidewire into the left subclavian vein, the dilator and guidewire were removed and a bipolar active fixation steroid tipped ventricular lead was advanced through the introducer into the superior vena cava. A guidewire was placed through the introducer and the introducer was stripped from the lead and guidewire. Another 8 [place] Medtronic lead introducer was placed over the guidewire into the left subclavian vein, the dilator and guidewire were removed and a bipolar active fixation steroid tipped atrial lead was advanced through the introducer into the superior vena cava. A guidewire was placed back through the introducer and the introducer was stripped from the lead and guidewire. Using a curved stylette the ventricular lead was advanced through the right ventricular outflow tract into the pulmonary artery and then using a straight stylette was positioned in the right ventricular apex. The screw was extended fixing the lead in position. Pacing and sensing thresholds were evaluated in bipolar configuration and are recorded on the implant data sheet. Using a curved stylette the atrial lead was positioned in the region of the atrial appendage and the screw extended fixing the lead in position. Pacing and sensing thresholds were evaluated in bipolar configuration and are recorded on the implant data sheet. Once the leads were in position they were attached to the anterior pectoralis fascia using 2 sutures of 2-0 silk around each lead collar. The bacitracin- soaked sponge was removed from the pocket, hemostasis was obtained, the pacemaker was attached to the leads and placed in the pocket with the leads coiled beneath it. The incision was closed with a running double subcutaneous closure of 3-0 Vicryl absorbable suture, followed by running subcuticular skin closure of 4-0 Vicryl absorbable suture. Bacitracin ointment was placed on the incision and a dressing applied. I attest to the content of the Intraoperative Record and any orders documented therein. Any exceptions are noted below.
[2018-08-18] MEDS: ACETAMINOPHEN W/CODEINE #3 1 TAB PO PRN (12:55)
[2018-08-18] MEDS: METOPROLOL SUCC 25MG EXT REL TAB PO SCH (13:05)
--- NOTE | 2018-08-18 15:45 | Hospitalist Progress Note ---
Date of Service August 18, 2018 Assessment & Plan (1) Syncope: Syncope: Likely secondary to Symptomatic bradycardia Lisinopril and metoprolol are on hold Echocardiogram noted Comb Winder consulted- Dr. Mancilla- recommended ppm placement Status post permanent pacemaker placement today Patient has been doing fine following the procedure Will observe in ICU 11th rib fracture, left hip secondary to fall pain improving Continue pain control encouraged Incentive spirometry Denies any shortness of breath CAD status post stent Continue aspirin Metoprolol on hold secondary to bradycardia And restart beta-alice hx CVA Continue aspirin Hypertension Lisinopril resumed Chronic anemia, hemoglobin at baseline past tobacco abuse DVT prophylaxis. Lovenox subcu Full code Disposition Discharge to home medically stable and cleared by briquette maker Like to be discharged tomorrow Subjective 08/18 The patient was seen and examined in ICU He is status post stem pacemaker placement for bradycardia with syncope Has been feeling a lot better and denies any symptoms following the procedure Wants to come out of bed Physical Exam Vital Signs (Past 24 Hours): Last Vital Signs Temp 36.7 C 08/18/18 07:54 Pulse 60 08/18/18 14:30 Resp 18 08/18/18 14:30 BP 145/95 H 08/18/18 14:30 Pulse Ox 95 08/18/18 14:30 Physical Exam: No apparent distress at rest Constitutional: WD/WN, vitals as above well developed Eyes: PERRL, conjunctivae normal, anicteric sclerae ENMT: external ear and nose normal, oropharynx normal Neck: trachea midline, no thyromegaly Respiratory: Auscultation: lungs clear to auscultation bilaterally and + diminished lung sounds Left anterior upper chest wall is tender following pacemaker implantation Cardiovascular: Rate/Rhythm: regular rate and regular rhythm Heart Sounds: normal S1 and normal S2 Gastrointestinal (Abdomen): Inspection/Auscultation: abdomen normal to inspection and normal bowel sounds Percussion/Palpation: abdomen soft; abdomen nontender Neurologic: Alert, awake and oriented x3 Results & Data Medications Administered Current Inpatient Medications Acetaminophen (Tylenol) 650 mg PO Q4H PRN PRN Reason: Pain or Fever Stop: 09/14/18 22:53 Acetaminophen (Tylenol) 650 mg PO Q4H PRN PRN Reason: Mild pain (rating 1,2,3) Stop: 09/17/18 11:11 Acetaminophen/Codeine Phosphate (Tylenol W/Codeine #3) 1 - 2 tab PO Q4H PRN PRN Reason: Moderate-Severe Pain Stop: 09/17/18 11:11 Last Admin: 08/18/18 12:55 Dose: 1 tab Documented by: Aspirin (Ecotrin) 325 mg PO DAILY [facility] Stop: 09/15/18 08:59 Last Admin: 08/18/18 08:12 Dose: 325 mg Documented by: Atropine Sulfate (Atropine Sulfate) 0.5 mg IV Q3M PRN PRN Reason: symptomatic bradycardia Stop: 09/14/18 22:59 Citalopram Hydrobromide (Celexa) 20 mg PO DAILY [facility] Stop: 09/15/18 08:59 Last Admin: 08/18/18 08:11 Dose: 20 mg Documented by: Gabapentin (Neurontin) 300 mg PO TID [facility] Stop: 09/15/18 08:59 Last Admin: 08/18/18 14:33 Dose: 300 mg Documented by: Hydromorphone HCl (Dilaudid) 0.25 mg IV Q3H PRN PRN Reason: Pain Stop: 08/29/18 22:53 Prochlorperazine 5 mg/ Syringe 5 mls @ 5 mls/min IV Q6H PRN PRN Reason: Nausea And Vomiting Stop: 09/14/18 22:53 Acetaminophen (Ofirmev) 65 mls @ 200 mls/hr IV Q8H [facility] Stop: 09/15/18 11:59 Last Infusion: 08/18/18 13:43 Dose: Infused Documented by: Lactated Ringer's (Lr) 1,000 mls @ 15 mls/hr IV .Q24H [facility] Stop: 08/21/18 00:39 Last Admin: 08/18/18 09:07 Dose: 15 mls/hr Documented by: Cefazolin Sodium (Ancef 2000mg) 2,000 mg in 15 mls @ 3.75 mls/min IV PREOP [facility]; Protocol Stop: 08/18/18 18:00 Last Admin: 08/18/18 11:59 Dose: Not Given Documented by: Ketorolac Tromethamine (Toradol) 15 mg IV Q6H PRN PRN Reason: Pain Stop: 08/20/18 22:59 Last Admin: 08/16/18 00:38 Dose: 15 mg Documented by: Lidocaine (Lidoderm 5%) 1 patch TD HS [facility] Stop: 09/14/18 23:44 Last Admin: 08/17/18 21:57 Dose: 1 patch Documented by: Lisinopril (Zestril) 10 mg PO QAM [facility] Stop: 09/16/18 14:29 Last Admin: 08/18/18 08:12 Dose: 10 mg Documented by: Metoprolol Succinate (Toprol Xl) 25 mg PO DAILY [facility] Stop: 09/17/18 11:14 Last Admin: 08/18/18 13:05 Dose: 25 mg Documented by: Miscellaneous (Remove Lidoderm Patch) [facility] Stop: 09/15/18 10:29 Last Admin: 08/18/18 08:12 Dose: 1 ea Documented by: Rosuvastatin Calcium (Crestor) 40 mg PO DAILY [facility] Stop: 09/15/18 08:59 Last Admin: 08/18/18 08:12 Dose: 40 mg Documented by: Tramadol HCl (Ultram) 25 - 50 mg PO Q4H PRN PRN Reason: Pain Stop: 09/14/18 22:53 Last Admin: 08/18/18 08:17 Dose: 50 mg Documented by: (1) Syncope Syncope type: unspecified Qualified Code(s): R55 - Syncope and collapse
--- NOTE | 2018-08-18 16:17 | Post Anesthesia Assessment ---
Date of Service August 18, 2018 Post Sedation Assessment Vital Signs Temp Pulse Pulse Pulse Pulse Resp BP 08/18/18 14:30 60 18 145/95 H 08/18/18 14:00 60 18 138/84 08/18/18 13:30 60 18 168/100 H 08/18/18 12:57 60 18 160/89 H 08/18/18 12:45 60 18 162/90 H 08/18/18 12:27 60 18 175/102 H 08/18/18 12:19 60 18 170/101 H 08/18/18 11:45 60 16 173/105 H 08/18/18 11:30 60 16 178/98 H 08/18/18 11:15 60 16 146/97 H 08/18/18 11:10 60 60 16 146/97 H 08/18/18 08:00 45 L 08/18/18 07:54 36.7 C 45 L 20 161/84 H 08/18/18 04:08 36.8 C 46 L 18 157/92 H 08/17/18 23:49 36.6 C 46 L 16 138/80 08/17/18 22:20 44 L 08/17/18 19:17 36.6 C 47 L 20 165/86 H Pulse Ox 08/18/18 14:30 95 08/18/18 14:00 96 08/18/18 13:30 95 08/18/18 12:57 98 08/18/18 12:45 97 08/18/18 12:27 96 08/18/18 12:19 97 08/18/18 11:45 96 08/18/18 11:30 96 08/18/18 11:15 96 08/18/18 11:10 96 08/18/18 08:00 08/18/18 07:54 95 08/18/18 04:08 94 08/17/18 23:49 97 08/17/18 22:20 08/17/18 19:17 96 Recovery Score Activity: Moves 4 extremities Respiration: Deep Breath/Cough Circulation: +/-20% PreAnes Value Consciousness: Fully Awake Oxygen Saturation: > 92% On Room Air Post Anesthesia Score: 10 Discharge Sedation Level of Care: Fast Track Phase II Post Sedation Plan On clinical assessment, the patient appears to have tolerated the sedation without complications. Patient is recovering as anticipated. Patient will continue to be monitored by nursing and may be discharged when sedation discharge criteria are met per below protocol. Upon Completions of procedure and additional 15 minutes continue every 5 minute vital signs and the P.A.R. score; then discharge to a Phase I or Fast Track to Phase II per the following guidelines: * Discharge Patient to appropriate Phase II area if PAR is 8 or greater or return to pre- procedure baseline. The post - procedure orders will be as directed. * If PAR score is less than 8 or not return to pre-procedure baseline then patient will follow Phase I monitoring till PAR is reached for Phase II. The Phase I may be done in procedure room or may call to secure a Phase I area. * If naloxone or flumazenil are used for reversal, hold in Phase I for continued monitoring from when last reversal dose was given for a minimum of 60 minutes or longer pending the nurse and/or physician discretion of patient condition before discharge to Phase II. Please call the Sedation Physician to re-evaluate and complete post-note for discharge to Phase II area. Do NOT discharge from procedure sedation or Phase 1 until post- sedation evaluation note is complete by procedure /sedation MD Sedation Discharge Instructions to be given to the patient at discharge to home.
[2018-08-18] MEDS: LIDOCAINE 5% 1 PATCH TD SCH (20:43)
[2018-08-19] MEDS: TRAMADOL HCL 50 MG TABLET PO PRN (01:40)
[2018-08-19] MEDS: ACETAMINOPHEN 65 ML IV SCH (03:32)
[2018-08-19] MEDS: LACTATED RINGER'S 1,000 ML IV SCH (03:54)
[2018-08-19 05:11] LABS: Basophils # (auto) 0.01 K/uL (0-0.2); Basophils % (auto) 0.2 %; Eosinophils # (auto) 0.17 K/uL (0-0.5); Eosinophils % (auto) 3.5 %; Hematocrit (blood only) 39.2 % (42-52); Hemoglobin 13.4 g/dL (14.0-18.0); Immature Granulocytes # (auto) 0.01 K/uL (0.00-0.02); Immature Granulocytes % (auto) 0.2 %; Lymphocytes # (auto) 1.14 K/uL (1.2-3.4); Lymphocytes % (auto) 23.3 %; Mean Corpuscular Hgb Conc 34.2 g/dL (32-36); Mean Corpuscular Volume 89.3 fL (80-100); Mean Platelet Volume 11.4 fL (7.4-10.4); Monocytes # (auto) 0.44 K/uL (0.11-0.59); Neutrophils # (auto) 3.13 K/uL (1.4-6.5); Neutrophils % (auto) 63.8 %; Platelet Count 122 K/uL (130-400); RDW Coefficient of Variation 13.4 % (11.5-14.5); RDW Standard Deviation 43.9 fL (36.4-46.3); Red Blood Count 4.39 M/uL (4.7-6.1)
[2018-08-19 05:31] LABS: BUN Creatinine Ratio 17.1 (10-20); Calcium 8.2 mg/dl (8.5-10.1); Creatinine Clr Calc Pharmacy 64.9 ml/min; Est GFR (African American) 76.7; Est GFR (Non-African American) 66.2; Magnesium 2.1 mg/dl (1.8-2.4); Potassium 4.2 mmol/L (3.5-5.1)
--- NOTE | 2018-08-19 06:41 | XRay Report ---
XR chest 2V routine CLINICAL HISTORY: EXACT TIME ORDERED Evaluate for pneumothorax and l COMPARISON STUDY: 08/15/2017 FINDINGS: Placement of a permanent bipolar cardiac pacemaker. Leads in good position. No evidence for pneumothorax. IMPRESSION: Cardiac pacemaker placed. Leads in good position. No evidence for pneumothorax. The above report was generated using voice recognition software. It may contain grammatical, syntax or spelling errors. Electronically signed by: Derrick Esteves M.D. 08/19/2018 6:40 AM
[2018-08-19] MEDS: ASPIRIN 325 MG ECTAB PO SCH (07:27)
[2018-08-19] MEDS: LISINOPRIL 10 MG TAB PO SCH (07:27)
[2018-08-19] MEDS: GABAPENTIN 300 MG CAP PO SCH ×2 (07:28→12:50)
[2018-08-19] MEDS: CITALOPRAM 20 MG TAB PO SCH (07:28)
[2018-08-19] MEDS: ROSUVASTATIN CALCIUM 20 MG TAB PO SCH (07:28)
[2018-08-19] MEDS: METOPROLOL SUCC 25MG EXT REL TAB PO SCH (07:28)
[2018-08-19] MEDS: ACETAMINOPHEN W/CODEINE #3 1 TAB PO PRN (07:28)
--- NOTE | 2018-08-19 09:18 | Cardiology Progress Note ---
Date of Service August 19, 2018 Assessment & Plan (1) Syncope: He had an episode of severe presyncope or possibly syncope resulting in a fall, this was preceded by at least 1 week of intermittent dizziness and falling. He apparently has a long history of bradycardia but I do not know if it is worse now. His heart rate is quite low and I suspect this contributed to the episode. It may be that there was some other factor as well (such as dehydration) but at the moment bradycardia seems to be the most likely underlying cause. It does not sound as though it was a tachyarrhythmia and he has had no other arrhythmia on monitoring. An echo is unremarkable. There is no evidence that he had an acute cardiac event. Hopefully with a pacemaker in place he will have no further episodes. (2) CAD (coronary artery disease): He has coronary disease based on his history with stent placement 19 years ago at [place]. Clinically he has been stable with no exertional symptoms. Based on his electrocardiogram I do not see a prior myocardial infarction although they do not always show up on electrocardiography. (3) Sinus bradycardia: He has a long history of sinus bradycardia however until recently has not had symptoms suggesting symptomatic sinus bradycardia. Now I suspect his symptoms were related to it although I cannot be sure. In any case beta- blockade or intrinsic sinus node dysfunction would likely keep him from having some compensatory increase in heart rate. With presyncope and falling and his heart rate as low as it is I think we need to consider a pacemaker. His heart rate has really not changed with discontinuation of metoprolol, and it was a very low dose. (4) Artificial cardiac pacemaker: He is doing very well post pacemaker yesterday, the site looks good, he feels good and the pacer is working well. He is stable for discharge. I will arrange follow-up in 2 days. Subjective He feels well today, no significant incisional discomfort, he was walking and felt well. No shortness of breath or chest pain. Physical Exam Vital Signs (Past 24 Hours): Last Vital Signs Temp 36.7 C 08/19/18 08:00 Pulse 60 08/19/18 08:00 Resp 18 08/19/18 08:00 BP 123/89 08/19/18 08:00 Pulse Ox 97 08/19/18 08:00 Physical Exam: The incision is clean, minimal bleeding, minor ecchymosis. No swelling. Results & Data Diagnostic Findings Postop ECG: Atrial pacing appropriately Telemetry: Normal pacemaker function Pacemaker evaluation: Excellent pacing and sensing characteristics (1) Syncope Syncope type: unspecified Qualified Code(s): R55 - Syncope and collapse
--- NOTE | 2018-08-19 11:07 | Hospitalist Progress Note ---
Date of Service August 19, 2018 Assessment & Plan (1) Syncope: Syncope: Likely secondary to Symptomatic bradycardia Lisinopril and metoprolol are on hold Echocardiogram noted Final Cleaner consulted- Dr. Mancilla- recommended ppm placement Status post permanent pacemaker placement today Patient has been doing fine following the procedure Monitor showed paced rhythm no more bradyarrhythmias Patient is clinically not better 11th rib fracture, left hip secondary to fall pain improving Continue pain control encouraged Incentive spirometry Denies any shortness of breath Wants to have Lidoderm patch 1 discharge CAD status post stent Continue aspirin Metoprolol on hold secondary to bradycardia Beta-ailce restarted hx CVA Continue aspirin Hypertension Lisinopril resumed Chronic anemia, hemoglobin at baseline past tobacco abuse DVT prophylaxis. Lovenox subcu Full code Disposition Discharge to home medically stable and cleared by bioinformatics specialist Has been ambulating without difficulty We will discharge home this afternoon Subjective 08/18 The patient was seen and examined in ICU He is status post stem pacemaker placement for bradycardia with syncope Has been feeling a lot better and denies any symptoms following the procedure Wants to come out of bed 08/19 Patient was seen and examined in ICU Status post pacemaker placement yesterday for bradyarrhythmias and syncope He has been feeling a lot better following the pacemaker insertion and does not have any more symptoms He wants to go home Physical Exam Vital Signs (Past 24 Hours): Last Vital Signs Temp 36.7 C 08/19/18 08:00 Pulse 60 08/19/18 08:00 Resp 18 08/19/18 08:00 BP 123/89 08/19/18 08:00 Pulse Ox 97 08/19/18 08:00 Physical Exam: No apparent distress at rest Constitutional: WD/WN, vitals as above well developed Eyes: PERRL, conjunctivae normal, anicteric sclerae ENMT: external ear and nose normal, oropharynx normal Neck: trachea midline, no thyromegaly Respiratory: Auscultation: lungs clear to auscultation bilaterally and + diminished lung sounds Cardiovascular: Rate/Rhythm: regular rate and regular rhythm Heart Sounds: normal S1 and normal S2 Gastrointestinal (Abdomen): Inspection/Auscultation: abdomen normal to inspection and normal bowel sounds Percussion/Palpation: abdomen soft; abdomen nontender Neurologic: PERRL, EOMI, accommodation nl, no face palsy, no dysarthria Results & Data Laboratory Results Short CBC 08/19/18 Range/Units 04:20 WBC 4.90 (4.8-10.8) K/uL Hgb 13.4 L (14.0-18.0) g/dL Hct 39.2 L (42-52) % Plt Count 122 L (130-400) K/uL BMP 08/19/18 04:20 Sodium 137 Potassium 4.2 Chloride 105 Carbon Dioxide 29 BUN 20 H Creatinine 1.14 Glucose 92 Calcium 8.2 L Medications Administered Current Inpatient Medications Acetaminophen (Tylenol) 650 mg PO Q4H PRN PRN Reason: Mild pain (rating 1,2,3) Stop: 09/17/18 11:11 Acetaminophen (Tylenol) 650 mg PO Q8 [facility] Stop: 09/18/18 13:59 Acetaminophen/Codeine Phosphate (Tylenol W/Codeine #3) 1 - 2 tab PO Q4H PRN PRN Reason: Moderate-Severe Pain Stop: 09/17/18 11:11 Last Admin: 08/19/18 07:28 Dose: 1 tab Documented by: Aspirin (Ecotrin) 325 mg PO DAILY [facility] Stop: 09/15/18 08:59 Last Admin: 08/19/18 07:27 Dose: 325 mg Documented by: Atropine Sulfate (Atropine Sulfate) 0.5 mg IV Q3M PRN PRN Reason: symptomatic bradycardia Stop: 09/14/18 22:59 Citalopram Hydrobromide (Celexa) 20 mg PO DAILY [facility] Stop: 09/15/18 08:59 Last Admin: 08/19/18 07:28 Dose: 20 mg Documented by: Gabapentin (Neurontin) 300 mg PO TID [facility] Stop: 09/15/18 08:59 Last Admin: 08/19/18 07:28 Dose: 300 mg Documented by: Hydromorphone HCl (Dilaudid) 0.25 mg IV Q3H PRN PRN Reason: Pain Stop: 08/29/18 22:53 Prochlorperazine 5 mg/ Syringe 5 mls @ 5 mls/min IV Q6H PRN PRN Reason: Nausea And Vomiting Stop: 09/14/18 22:53 Lactated Ringer's (Lr) 1,000 mls @ 15 mls/hr IV .Q24H [facility] Stop: 08/21/18 00:39 Last Admin: 08/19/18 03:54 Dose: Not Given Documented by: Ketorolac Tromethamine (Toradol) 15 mg IV Q6H PRN PRN Reason: Pain Stop: 08/20/18 22:59 Last Admin: 08/16/18 00:38 Dose: 15 mg Documented by: Lidocaine (Lidoderm 5%) 1 patch TD HS [facility] Stop: 09/14/18 23:44 Last Admin: 08/18/18 20:43 Dose: 1 patch Documented by: Lisinopril (Zestril) 10 mg PO QAM [facility] Stop: 09/16/18 14:29 Last Admin: 08/19/18 07:27 Dose: 10 mg Documented by: Metoprolol Succinate (Toprol Xl) 25 mg PO DAILY [facility] Stop: 09/17/18 11:14 Last Admin: 08/19/18 07:28 Dose: 25 mg Documented by: Miscellaneous (Remove Lidoderm Patch) 1 ea N/A QAM [facility] Stop: 09/15/18 10:29 Last Admin: 08/19/18 08:53 Dose: 1 ea Documented by: Rosuvastatin Calcium (Crestor) 40 mg PO DAILY [facility] Stop: 09/15/18 08:59 Last Admin: 08/19/18 07:28 Dose: 40 mg Documented by: Tramadol HCl (Ultram) 25 - 50 mg PO Q4H PRN PRN Reason: Pain Stop: 09/14/18 22:53 Last Admin: 08/19/18 01:40 Dose: 50 mg Documented by: (1) Syncope Syncope type: unspecified Qualified Code(s): R55 - Syncope and collapse
[2018-08-19] MEDS ORDERED: ACETAMINOPHEN 325 MG TAB PO SCH (14:00)
--- NOTE | 2018-08-20 08:32 | Discharge Summary ---
Date of Service August 20, 2018 Admission HPI Per Admitting Provider History obtained from patient and records. Medical history significant for CAD status post stent, CVA, hypertension, chronic bradycardia, past tobacco abuse, chronic anemia baseline hemoglobin 13. Recent confinement August 2009 for CVA. Patient was cooking at home yesterday when he felt dizzy ,lightheaded, subsequently fell backwards. Possible blackout as per patient. Patient woke up with achy pleuritic left-sided chest pain following fall. No SOB. No tongue biting, no incontinence. No previous episodes. Patient thinks he did not eat too well yesterday secondary to being busy with housework in the morning. Patient was awake when found him after she heard a thump from the other room. BP noted to be low as per EMS account upon arrival. 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 Admission Exam Per Admitting Provider Vital Signs (Past 24 Hours): Last Vital Signs Temp 36.5 C 08/15/18 19:48 Pulse 48 L 08/15/18 22:47 Resp 16 08/15/18 22:47 BP 109/73 08/15/18 22:47 Pulse Ox 96 08/15/18 22:47 Physical Exam: GENERAL: Comfortable, pleasant, no respiratory distress SKIN: Pallor, warm HEENT: Partial alopecia, bespectacled, pale palpebral conjunctivae, no ptosis, dry buccal mucosa NECK : Supple, no tenderness CHEST : Decreased breath sounds, tenderness left chest wall HEART : Bradycardic, no obvious murmurs ABDOMEN: Some distention, nontender EXTREMITIES : No LE swelling/tenderness, no other conspicuous deformities noted NEUROLOGIC : Coherent, no facial asymmetry, no other gross focality Principal Diagnosis Syncope, bradyarrhythmias status post pacemaker placement Discharge Exam Constitutional WD/WN, vitals as above well developed Eyes PERRL, conjunctivae normal, anicteric sclerae ENMT external ear and nose normal, oropharynx normal Neck trachea midline, no thyromegaly Respiratory Auscultation: lungs clear to auscultation bilaterally and + diminished lung sounds Cardiovascular Rate/Rhythm: regular rate and regular rhythm Heart Sounds: normal S1 and normal S2 Gastrointestinal (Abdomen) Inspection/Auscultation: abdomen normal to inspection and normal bowel sounds Percussion/Palpation: abdomen soft; abdomen nontender Neurologic PERRL, EOMI, accommodation nl, no face palsy, no dysarthria Discharge Data Allergies Allergy/AdvReac Type Severity Reaction Status Date / Time No Known Allergies Allergy Verified 08/15/18 20:07 Consultations 08/15/18 22:54 Consult Cardiology Routine Procedures Performed Operation Date: 08/18/18 08:00 Actual Procedures p Pacer with A/V Leads (Dual) - Jose Mancilla MD Ordered Studies 08/15/18 20:27 CT head/brain wo con Stat 08/18/18 06:45 EP Lab Images for PACS ONCE Hospital Course (1) Syncope: Syncope: Likely secondary to Symptomatic bradycardia Lisinopril and metoprolol are on hold Echocardiogram noted [employer] consulted- Dr. Mancilla- recommended ppm placement Status post permanent pacemaker placement today Patient has been doing fine following the procedure Monitor showed paced rhythm no more bradyarrhythmias Patient is clinically not better 11th rib fracture, left hip secondary to fall pain improving Continue pain control encouraged Incentive spirometry Denies any shortness of breath Wants to have Lidoderm patch 1 discharge CAD status post stent Continue aspirin Metoprolol on hold secondary to bradycardia Beta-alice restarted hx CVA Continue aspirin Hypertension Lisinopril resumed Chronic anemia, hemoglobin at baseline past tobacco abuse DVT prophylaxis. Lovenox subcu Full code Disposition Discharge to home medically stable and cleared by planning management it specialist Has been ambulating without difficulty We will discharge home this afternoon Total Time Total Time Spent Total Time Spent (In Minutes): 35 minutes Total Time Includes: Examination of the Patient, Discharge Planning, Medication Reconciliation and Communication With Other Providers Discharge Plan Discharge Items Patient Disposition: Home - Self-Care Reason For Visit: SYNCOPE Discharge Diagnosis: Syncope, bradyarrhythmias status post pacemaker placement Condition: Good Discharge Goals: Decrease discomfort, Improve function and Increase independence Activity: Resume your previous activity Non-emergency contact: Primary Care Provider Call non-emergency contact if: you have any medication questions and your symptoms worsen Follow-up/Referrals: Jose Mancilla MD [Physician] - 08/21/18 10:00 am Derrick Vasquez MD [Primary Care Provider] - 08/25/18 2:55 pm Diet: Heart Healthy Fluids: 1800ml (7 cups) Addtl Provider Instructions: ACTIVITY RECOMMENDATIONS: * Do not raise affected arm over head for 2 weeks. SPECIAL CARE INSTRUCTIONS: * If bleeding occurs, apply direct pressure to area for 5 minutes. * Call your doctor if you have severe pain, fever, drainage or bleeding at site. * Keep dressing on and dry for 48 hours then remove. * Keep any scheduled doctor's appointment. * Implant Card - hand held device with website information given. SKIN IRRITATION: * You may experience some redness and/or swelling in the area where radiation was administered. If any skin irritation occurs, please contact your family physician. FOLLOW UP VISIT: Keep any scheduled doctor appointments. Prescriptions: New lidocaine 5 % Adhesive Patch,Medicated 1 patch transdermal HS 15 Days Qty: 15 RF: 0 Continued citalopram 20 mg Tablet 20 mg PO DAILY RF: 0 aspirin 325 mg Tablet,Delayed Release (Dr/Ec) 325 mg PO DAILY RF: 0 lisinopril 10 mg Tablet 10 mg PO DAILY RF: 0 gabapentin 300 mg Capsule 300 mg PO TID RF: 0 metoprolol succinate 25 mg Tablet Extended Release 24 Hr 25 mg PO DAILY RF: 0 rosuvastatin 40 mg Tablet 40 mg PO DAILY RF: 0 Stand-Alone Forms: [facility] Discharge Orders: Discharge Order (Routine); Ordered 08/19/18 Ordered By: Meghana Gonzales Admission Data Admit Date/Time: 08/18/18 09:27 Attending Provider: Meghana Gonzales Admit Provider: Héctor Reilly Primary Care Provider: Derrick Vasquez Other Providers: Jose Mancilla ; Paulo Henriquez Service: Telemetry Medical Other Interventions: Discharge Summary Assessment (RN) Last Done: 08/19/18 12:31 DC Date/Time DO NOT enter until pt leaves facility: 08/19/18 14:09
== END 2018-08-19 14:09 | disposition home or self-care (01) | DRG 243 ==
LOC: 2W 19:42 → ED 19:42 → SUATTDRO 22:54 → 2W 23:14 → 1E 08-18 12:06

== ENCOUNTER 2020-01-19 19:21 | Observation (INO) ==
[2020-01-19] MEDS ORDERED: SODIUM CHLORIDE 0.9% 500 ML IV SCH (19:30)
[2020-01-19 19:38] LABS: Basophils # (auto) 0.01 K/uL (0-0.2); Basophils % (auto) 0.2 %; Eosinophils # (auto) 0.05 K/uL (0-0.5); Eosinophils % (auto) 0.8 %; Hematocrit (blood only) 38.2 % (42-52); Hemoglobin 12.7 g/dL (14.0-18.0); Immature Granulocytes # (auto) 0.01 K/uL (0.00-0.02); Immature Granulocytes % (auto) 0.2 %; Lymphocytes # (auto) 1.08 K/uL (1.2-3.4); Mean Corpuscular Hemoglobin 29.6 pg (25-34); Mean Corpuscular Hgb Conc 33.2 g/dL (32-36); Mean Platelet Volume 10.2 fL (7.4-10.4); Monocytes # (auto) 0.51 K/uL (0.11-0.59); Neutrophils % (auto) 73.8 %; Platelet Count 147 K/uL (130-400); RDW Coefficient of Variation 13.5 % (11.5-14.5); RDW Standard Deviation 44.2 fL (36.4-46.3); Red Blood Count 4.29 M/uL (4.7-6.1); White Blood Count 6.36 K/uL (4.8-10.8)
--- NOTE | 2020-01-19 19:44 | Emergency Department Note ---
Impression & Plan Syncope, Weakness, RAYMUNDO (acute kidney injury) ED Provider Note Provider: Trey Galvez MD DATE OF SERVICE: 01/19/2020 CHIEF COMPLAINT: Near syncope, weakness HISTORY OF PRESENT ILLNESS: Patient is a 69-year-old gentleman history of hypertension, syncope, CAD, symptomatic bradycardia with pacemaker presenting here today stating that since he woke this morning felt just little bit off. Denies pain. 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 Patient denies any head or neck pain. Patient denies chest pain but dorsal bit of epigastric discomfort currently. States he is feeling hungry at this point. Denies dizziness at any point. Denies focal difficulty with weakness or numbness or issues with speech at the current time. Patient is on aspirin. Patient states he has felt this way just before he received his pacemaker in August 2018. Patient did receive 500 mL's of normal saline prior to arrival for EMS. No hypoglycemia for EMS. Patient denies significant change in symptoms at this time still feeling slightly "off ". REVIEW OF SYSTEMS: A total of 10 review of systems was obtained and negative except as stated above in the HPI. PAST MEDICAL HISTORY: As noted above MEDICATIONS: Reviewed home medications with the patient SOCIAL HISTORY: and lives at home PHYSICAL EXAM: GENERAL: alert and oriented in no acute distress on stretcher Head: normocephalic and atraumatic EYES: No injection, discharge or icterus. PERRL, EOMI. NECK: Trachea midline. Supple. ENT: Mucous membranes pink and moist. LUNGS: Airway patent. No retractions. Breath sounds clear with good air entry bilaterally. HEART: Regular rate and rhythm. No chest wall tenderness ABDOMEN: Soft and non-tender, without guarding or rebound. SKIN: Acyanotic, warm, dry, without rashes EXTREMITIES: Without swelling, tenderness or deformity NEUROLOGICAL: No focal deficits. No aphasia. No facial droop or slurred speech. Normal strength and tone in the extremities. Sensation to gross touch normal. EKG: Atrial paced rhythm 65 bpm. No PVC or PAC. No acute ST segment elevation or depression noted. QTc 447. CONTINUOUS CARDIAC MONITORING: was ordered and showed a heart rate of 61 bpm in atrially paced rhythm. Patient's hypertension was referred to the hospitalist/PCP Patient's laboratory studies and imaging reviewed. Differential includes Infection, dehydration, metabolic abnormality, hypo/hyperglycemia, electrolyte disturbance, anemia, hypoxia, cardiac sources, intracerebral event, toxicologic, neurologic, as well as other pathologies. IMPRESSION/MEDICAL DECISION MAKING: Patient presents after syncope/near syncope event plan is some possible palpitations. EKG appears an atrial paced stable rhythm. Not hypoglycemic. No focal deficit lower suspicion for stroke but given that he had this new event CT of the head was completed. Patient denies any dizziness or vertigo type symptoms at this point. Did consider PE but laboratory studies reveal evidence of new acute kidney injury and elevated creatinine. Patient is not significantly hypoxic at this time and do not feel the need to expose him to contrast at this point. Given additional IV fluids here. Electrolytes and Lyme testing was sent. Patient does not appear meningitic. Benign abdomen and I doubt acute intra-abdominal process at this point. Labs likely show no significant anemia or leukocytosis. Labs show no significant electrolyte [place] but evidence the creatinine is risen to 2 much higher than previous baseline. No transaminitis or signs of pancreatitis. Normal TSH. Undetectable troponin my suspicion for acute ACS. CT the head was completed without acute intracranial abnormality noted. I have a lower suspicion for acute stroke. Due to concerns patient could be experiencing some of his symptoms secondary to the change in renal function. Pacemaker diagnostics were unremarkable per the report. Patient on reassessment had minimal improvement. Bladder scan performed minus also less than 100 cc of urine. Nonacute retention. Do of some concern given changes renal function if this could be contributing. Given unclear etiology of his syncope believe further cardiac monitoring and evaluation here would be reasonable and the patient is in agreement. The hospitalist was contacted. Per his request I updated his who states for the last week or 2 he is not quite been himself seemed a little bit off. Past this information onto the hospitalist. DIAGNOSIS: Syncope, weakness, acute kidney injury DISPOSITION: Hospitalist will evaluate Patient was agreeable with this plan. Past Med/Surg History Medical History (Updated 01/19/20 @ 20:47 by Trey Galvez M.D.) CAD (coronary artery disease) Chronic anemia CVA (cerebral vascular accident) Heart attack HTN (hypertension) Pacemaker Symptomatic bradycardia Surgical History History of coronary artery stent placement [facility] [place] Family History Other Diabetes Stroke Social History Smoking Status: Never smoker Tobacco Type: Smokeless Tobacco (Dip or Chew) Hx Alcohol Use: No Hx Substance Use: No Preferred Language: [place]agu[place] Communication Ability: Effective Manager Technical Sales Required: No Beliefs That Will Affect Care: None Current Living Situation: Spouse Feels Safe at Home: Yes Allergies Allergies Allergy/AdvReac Type Severity Reaction Status Date / Time No Known Allergies Allergy Verified 01/19/20 21:03 Home Meds Home Medications Medication Instructions Recorded Confirmed aspirin 325 mg PO QAM 08/15/18 01/19/20 citalopram 20 mg PO QAM 08/15/18 01/19/20 gabapentin 300 mg PO QAM 08/15/18 01/19/20 lisinopril 10 mg PO QAM 08/15/18 01/19/20 metoprolol succinate 25 mg PO QAM 08/15/18 01/19/20 rosuvastatin 40 mg PO QAM 08/15/18 01/19/20 Results & Data (ED) Vital Signs Vital Signs - 24 hr 01/19/20 19:28 01/19/20 19:53 01/19/20 19:54 Temperature 36.6 C Temperature Source Oral Pulse Rate - Lying 61 Pulse Rate - Sitting 67 Pulse Rate - Standing 64 Pulse Rate 61 Pulse Rate from SpO2 Sensor Respiratory Rate 18 Blood Pressure - Lying 99/41 L Blood Pressure - Sitting 110/69 Blood Pressure- Standing 103/69 Blood Pressure 105/64 Blood Pressure Mean 77 Pulse Oximetry 93 97 Oxygen Delivery Method Room Air Room Air Sepsis Recent Fever Within 48 Hours No Sepsis New/Unexplained Change in Mental Status No Sepsis Action Taken by Nursing No Action Required 01/19/20 20:49 01/19/20 22:04 Temperature Temperature Source Pulse Rate - Lying Pulse Rate - Sitting Pulse Rate - Standing Pulse Rate 60 Pulse Rate from SpO2 Sensor 60 60 Respiratory Rate 15 Blood Pressure - Lying Blood Pressure - Sitting Blood Pressure- Standing Blood Pressure 129/89 96/64 L Blood Pressure Mean 101 67 Pulse Oximetry 96 95 Oxygen Delivery Method Sepsis Recent Fever Within 48 Hours Sepsis New/Unexplained Change in Mental Status Sepsis Action Taken by Nursing Laboratory Data Result diagrams: 01/19/20 19:30 01/19/20 19:30 Lab Results 01/19/20 01/19/20 01/19/20 Range/Units 19:30 19:30 19:30 WBC 6.36 (4.8-10.8) K/uL RBC 4.29 L (4.7-6.1) M/uL Hgb 12.7 L (14.0-18.0) g/dL POC Hgb (14.0-18.0) g/dl Hct 38.2 L (42-52) % POC Hct (42-52) % MCV 89.0 (80-100) fL MCH 29.6 (25-34) pg MCHC 33.2 (32-36) g/dL RDW Std Deviation 44.2 (36.4-46.3) fL RDW Coeff of Renetta 13.5 (11.5-14.5) % Plt Count 147 (130-400) K/uL MPV 10.2 (7.4-10.4) fL Immature Gran % (Auto) 0.2 % Neut % (Auto) 73.8 % Lymph % (Auto) 17.0 % [place] % (Auto) 8.0 % Eos % (Auto) 0.8 % Baso % (Auto) 0.2 % Neut # (Auto) 4.70 (1.4-6.5) K/uL Lymph # (Auto) 1.08 L (1.2-3.4) K/uL [place] # (Auto) 0.51 (0.11-0.59) K/uL Eos # (Auto) 0.05 (0-0.5) K/uL Baso # (Auto) 0.01 (0-0.2) K/uL Immature Gran # (Auto) 0.01 (0.00-0.02) K/uL POC Sodium (135-144) mmol/L Sodium 140 (136-145) mmol/L POC Potassium (3.3-5.0) mmol/L Potassium 3.3 L (3.5-5.1) mmol/L POC Chloride (101-112) mmol/L Chloride 109 H (98-107) mmol/L Carbon Dioxide 21 (21-32) mmol/L POC Total CO2 (24-31) mmol/L Anion Gap 10.0 (3-11) POC Anion Gap (16-25) mmol/L POC BUN (7-18) mg/dl BUN 22 H (7-18) mg/dl Creatinine 2.00 H (0.6-1.4) mg/dl POC Creatinine (0.6-1.3) mg/dl Est Cr Clr Drug Dosing 36.5 ml/min Est GFR ( Amer) 38.6 Est GFR (Non-Af Amer) 33.3 BUN/Creatinine Ratio 11.1 (10-20) Glucose 159 H (70-99) mg/dl POC Glucose (other) (70-99) mg/dl Calcium 8.2 L (8.5-10.1) mg/dl POC Ioniz Calcium Liborio (1.12-1.32) mmol/l Magnesium 2.0 (1.8-2.4) mg/dl Total Bilirubin 1.1 H (0.2-1) mg/dl AST 16 (15-37) U/L ALT 19 (12-78) U/L Alkaline Phosphatase 65 (45-117) U/L Total Creatine Kinase 172 (39-308) U/L Troponin I < 0.015 (0-0.045) ng/ml Total Protein 6.2 L (6.4-8.2) gm/dl Albumin 3.2 L (3.4-5.0) gm/dl Globulin 3.0 (2.5-4.0) gm/dl Albumin/Globulin Ratio 1.1 (0.9-2) Lipase 75 (73-393) U/L TSH 3.020 (0.300-4.500) uIu/ml Urine Color Urine Appearance (Clear) Urine pH (4.5-7.5) Ur Specific [place] (1.000-1.030) Urine Protein (Negative) Urine Glucose (UA) (Negative) Urine Ketones (Negative) Urine Blood (Negative) Urine Nitrite (Negative) Urine Bilirubin (Negative) Urine Urobilinogen (Negative) Ur Leukocyte Esterase (Negative) Urine RBC (0-4) /hpf Urine WBC (0-5) /hpf Ur Epithelial Cells (0-5) /lpf Urine Bacteria (Negative) Hyaline Casts (0-5) /lpf WBC Casts (0) /lpf Lyme Disease IgG Ab (Negative) Lyme Disease IgM Ab (Negative) COVID-19 Eval Order 01/19/20 01/19/20 01/19/20 Range/Units 19:34 19:42 21:17 WBC (4.8-10.8) K/uL RBC (4.7-6.1) M/uL Hgb (14.0-18.0) g/dL POC Hgb 12.2 L (14.0-18.0) g/dl Hct (42-52) % POC Hct 36 L (42-52) % MCV (80-100) fL MCH (25-34) pg MCHC (32-36) g/dL RDW Std Deviation (36.4-46.3) fL RDW Coeff of Renetta (11.5-14.5) % Plt Count (130-400) K/uL MPV (7.4-10.4) fL Immature Gran % (Auto) % Neut % (Auto) % Lymph % (Auto) % [place] % (Auto) % Eos % (Auto) % Baso % (Auto) % Neut # (Auto) (1.4-6.5) K/uL Lymph # (Auto) (1.2-3.4) K/uL [place] # (Auto) (0.11-0.59) K/uL Eos # (Auto) (0-0.5) K/uL Baso # (Auto) (0-0.2) K/uL Immature Gran # (Auto) (0.00-0.02) K/uL POC Sodium 139 (135-144) mmol/L Sodium (136-145) mmol/L POC Potassium 3.4 (3.3-5.0) mmol/L Potassium (3.5-5.1) mmol/L POC Chloride 106 (101-112) mmol/L Chloride (98-107) mmol/L Carbon Dioxide (21-32) mmol/L POC Total CO2 20 L (24-31) mmol/L Anion Gap (3-11) POC Anion Gap 18.0 (16-25) mmol/L POC BUN 20 H (7-18) mg/dl BUN (7-18) mg/dl Creatinine (0.6-1.4) mg/dl POC Creatinine 2.0 H (0.6-1.3) mg/dl Est Cr Clr Drug Dosing ml/min Est GFR ( Amer) Est GFR (Non-Af Amer) BUN/Creatinine Ratio (10-20) Glucose (70-99) mg/dl POC Glucose (other) 159 H (70-99) mg/dl Calcium (8.5-10.1) mg/dl POC Ioniz Calcium Liborio 1.13 (1.12-1.32) mmol/l Magnesium (1.8-2.4) mg/dl Total Bilirubin (0.2-1) mg/dl AST (15-37) U/L ALT (12-78) U/L Alkaline Phosphatase (45-117) U/L Total Creatine Kinase (39-308) U/L Troponin I (0-0.045) ng/ml Total Protein (6.4-8.2) gm/dl Albumin (3.4-5.0) gm/dl Globulin (2.5-4.0) gm/dl Albumin/Globulin Ratio (0.9-2) Lipase (73-393) U/L TSH (0.300-4.500) uIu/ml Urine Color Yellow Urine Appearance Clear (Clear) Urine pH 5.5 (4.5-7.5) Ur Specific [place] 1.025 (1.000-1.030) Urine Protein Trace H (Negative) Urine Glucose (UA) Negative (Negative) Urine Ketones Trace H (Negative) Urine Blood Negative (Negative) Urine Nitrite Negative (Negative) Urine Bilirubin Negative (Negative) Urine Urobilinogen Negative (Negative) Ur Leukocyte Esterase Negative (Negative) Urine RBC 0-4 (0-4) /hpf Urine WBC 10-30 H (0-5) /hpf Ur Epithelial Cells 0-5 (0-5) /lpf Urine Bacteria Negative (Negative) Hyaline Casts >30 H (0-5) /lpf WBC Casts 1-5 H (0) /lpf Lyme Disease IgG Ab Negative (Negative) Lyme Disease IgM Ab Negative (Negative) COVID-19 Eval Order 01/19/20 Range/Units 21:59 WBC (4.8-10.8) K/uL RBC (4.7-6.1) M/uL Hgb (14.0-18.0) g/dL POC Hgb (14.0-18.0) g/dl Hct (42-52) % POC Hct (42-52) % MCV (80-100) fL MCH (25-34) pg MCHC (32-36) g/dL RDW Std Deviation (36.4-46.3) fL RDW Coeff of Renetta (11.5-14.5) % Plt Count (130-400) K/uL MPV (7.4-10.4) fL Immature Gran % (Auto) % Neut % (Auto) % Lymph % (Auto) % [place] % (Auto) % Eos % (Auto) % Baso % (Auto) % Neut # (Auto) (1.4-6.5) K/uL Lymph # (Auto) (1.2-3.4) K/uL [place] # (Auto) (0.11-0.59) K/uL Eos # (Auto) (0-0.5) K/uL Baso # (Auto) (0-0.2) K/uL Immature Gran # (Auto) (0.00-0.02) K/uL POC Sodium (135-144) mmol/L Sodium (136-145) mmol/L POC Potassium (3.3-5.0) mmol/L Potassium (3.5-5.1) mmol/L POC Chloride (101-112) mmol/L Chloride (98-107) mmol/L Carbon Dioxide (21-32) mmol/L POC Total CO2 (24-31) mmol/L Anion Gap (3-11) POC Anion Gap (16-25) mmol/L POC BUN (7-18) mg/dl BUN (7-18) mg/dl Creatinine (0.6-1.4) mg/dl POC Creatinine (0.6-1.3) mg/dl Est Cr Clr Drug Dosing ml/min Est GFR ( Amer) Est GFR (Non-Af Amer) BUN/Creatinine Ratio (10-20) Glucose (70-99) mg/dl POC Glucose (other) (70-99) mg/dl Calcium (8.5-10.1) mg/dl POC Ioniz Calcium [place] (1.12-1.32) mmol/l Magnesium (1.8-2.4) mg/dl Total Bilirubin (0.2-1) mg/dl AST (15-37) U/L ALT (12-78) U/L Alkaline Phosphatase (45-117) U/L Total Creatine Kinase (39-308) U/L Troponin I (0-0.045) ng/ml Total Protein (6.4-8.2) gm/dl Albumin (3.4-5.0) gm/dl Globulin (2.5-4.0) gm/dl Albumin/Globulin Ratio (0.9-2) Lipase (73-393) U/L TSH (0.300-4.500) uIu/ml Urine Color Urine Appearance (Clear) Urine pH (4.5-7.5) Ur Specific [place] (1.000-1.030) Urine Protein (Negative) Urine Glucose (UA) (Negative) Urine Ketones (Negative) Urine Blood (Negative) Urine Nitrite (Negative) Urine Bilirubin (Negative) Urine Urobilinogen (Negative) Ur Leukocyte Esterase (Negative) Urine RBC (0-4) /hpf Urine WBC (0-5) /hpf Ur Epithelial Cells (0-5) /lpf Urine Bacteria (Negative) Hyaline Casts (0-5) /lpf WBC Casts (0) /lpf Lyme Disease IgG Ab (Negative) Lyme Disease IgM Ab (Negative) COVID-19 Eval Order Covid19 Done at [facility] Administered Medications Discontinued Medications Sodium Chloride (Nss) 500 mls @ 999 mls/hr IV .Q31M HOMERO Stop: 01/19/20 20:00 Last Infusion: 01/19/20 20:33 Dose: 0 mls/hr Documented by: [id number] Admin: 01/19/20 19:46 Dose: 999 mls/hr Documented by: [id number] Potassium Chloride (Potassium Chloride 20 Meq Tabcr) 40 meq PO NOW STA Stop: 01/19/20 20:58 Last Admin: 01/19/20 21:10 Dose: 40 meq Documented by: [id number] Discharge Plan Visit Data Chief Complaint: Vertigo ED Provider: Trey Galvez Discharge Problem: Syncope, Weakness, RAYMUNDO (acute kidney injury) Patient Disposition: Being Evaluated by Hospitalist Forms Stand Alone Forms: My [facility] Prescriptions Prescriptions: No Action citalopram 20 mg Tablet 20 mg PO QAM RF: 0 aspirin 325 mg Tablet,Delayed Release (Dr/Ec) 325 mg PO QAM RF: 0 lisinopril 10 mg Tablet 10 mg PO QAM RF: 0 gabapentin 300 mg Capsule 300 mg PO QAM RF: 0 metoprolol succinate 25 mg Tablet Extended Release 24 Hr 25 mg PO QAM RF: 0 rosuvastatin 40 mg Tablet 40 mg PO QAM RF: 0 Referrals Referrals: Derrick Vasquez MD [Primary Care Provider] - Discharge Problem: Syncope Qualifiers: Syncope type: unspecified Qualified Code(s): R55 - Syncope and collapse
[2020-01-19 19:47] LABS: iSTAT Hemoglobin 12.2 g/dl (14.0-18.0); iSTAT Ionized Calcium 1.13 mmol/l (1.12-1.32); iSTAT Potassium 3.4 mmol/L (3.3-5.0)
[2020-01-19 20:00] LABS: Alanine Aminotransferase 19 U/L (12-78); Albumin Level 3.2 gm/dl (3.4-5.0); Aspartate Aminotransferase 16 U/L (15-37); BUN Creatinine Ratio 11.1 (10-20); Blood Urea Nitrogen 22 mg/dl (7-18); Calcium 8.2 mg/dl (8.5-10.1); Carbon Dioxide 21 mmol/L (21-32); Chloride 109 mmol/L (98-107); Creatinine Clr Calc Pharmacy 36.5 ml/min; Est GFR (African American) 38.6; Est GFR (Non-African American) 33.3; Glucose 159 mg/dl (70-99); Lipase 75 U/L (73-393); Potassium 3.3 mmol/L (3.5-5.1); Sodium 140 mmol/L (136-145)
--- NOTE | 2020-01-19 20:01 | XRay Report ---
XR chest 1V portable HISTORY: 69 years-old Male syncope acute syncope COMPARISON: Chest radiograph 09/16/2019, 08/19/2018. TECHNIQUE: Portable AP view of the chest FINDINGS: Cardiomediastinal and hilar silhouettes are within normal limits. Mild left hemidiaphragmatic elevati on with subsegmental left lung base opacities. Left subclavian pacer. No pneumothorax, pleural effusi on or overt pulmonary edema. 8 mm nodular opacity of the left midlung is unchanged. Bones appear shlomo sly intact. Partially imaged surgical anchor of the right humeral head. IMPRESSION: Left hemidiaphragmatic elevation with mild left lung base opacities suggestive of atelect asis. ACT 112: Negative or not required by law. The above report was generated using voice recognition software. It may contain grammatical, syntax o r spelling errors. Electronically signed by: Ralph Vaz M.D. 01/19/2020 8:00 PM
[2020-01-19 20:11] LABS: Albumin Globulin Ratio 1.1 (0.9-2); Alkaline Phosphatase 65 U/L (45-117); Bilirubin,Total 1.1 mg/dl (0.2-1); Total Protein 6.2 gm/dl (6.4-8.2); Troponin I < 0.015 ng/ml (0-0.045)
--- NOTE | 2020-01-19 20:14 | CT Scan Report ---
CT head/brain wo con CLINICAL HISTORY: 69 years-old Male with dizzy. Acute dizziness TECHNIQUE: Multiple axial CT images of the head were obtained without contrast. A dose lowering tech nique was utilized adhering to the principles of ALARA. CT DOSE: 614.27 mGy.cm COMPARISON: Head CT 09/16/2019 FINDINGS: No acute intracranial hemorrhage, midline shift, intracranial mass, hydrocephalus, territorial ischem ia or abnormal extra-axial collection. Age-related involutional changes with ex vacuo ventriculomegal y. Patchy white matter hypodensities suggest chronic microvascular ischemic disease. Remote subcentim eter lacunar infarct of the left thalamus. The calvarium is intact. Mastoid air cells are generally clear. There is minimal mucosal thickening of the ethmoid air cells and left maxillary sinus. IMPRESSION: No acute intracranial abnormality. ACT 112: Negative or not required by law. The above report was generated using voice recognition software. It may contain grammatical, syntax o r spelling errors. Electronically signed by: Ralph Vaz M.D. 01/19/2020 8:12 PM
[2020-01-19 20:40] LABS: Lyme Ab IgG w/WB Rflx Negative (Negative); Lyme Ab IgM w/WB Rflx Negative (Negative)
[2020-01-19] MEDS ORDERED: POTASSIUM CHLORIDE 20 MEQ TABCR PO STA (20:57)
[2020-01-19 21:23] LABS: Appearance Urine Clear (Clear); Bilirubin Urine Negative (Negative); Blood Urine Negative (Negative); Color Urine Yellow; Glucose Urine UA Negative (Negative); Ketones Urine Trace (Negative); Leukocyte Esterase Urine Negative (Negative); Nitrite Urine Negative (Negative); Protein Urine Trace (Negative); Specific Gravity Urine 1.025 (1.000-1.030); Urobilinogen Urine Negative (Negative); pH Urine 5.5 (4.5-7.5)
[2020-01-19 21:38] LABS: Hyaline Casts Urine >30 /lpf (0-5)
[2020-01-19 21:39] LABS: Epithelial Cell Urine 0-5 /lpf (0-5)
[2020-01-19 21:40] LABS: Bacteria Urine Negative (Negative); RBC Urine 0-4 /hpf (0-4)
[2020-01-19] MEDS ORDERED: POTASSIUM CHLORIDE 40 MEQ in SODIUM CHLORIDE 0.9% 1000ML 1,000 ML IV ONE (21:48)
--- NOTE | 2020-01-19 21:49 | History & Physical Report ---
Date of Service January 19, 2020 Assessment & Plan (1) Dizziness: Near syncope Likely secondary to orthostasis from hypovolemia, ARF possible viral infection HTN, BP on the lower side CAD status post stent symptomatic bradycardia status post PPM, no concerns on initial pacemaker interrogation done at the ER hx CVA as per records chronic anemia, hemoglobin at baseline Hyperglycemia rule out DM Hypokalemia secondary to poor p.o. 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 Heparin subcu Full code Text document was generated using [employer] voice recognition software. It may contain grammatical or spelling errors. Kindly contact undersigned for clarification of any documentation item in question. History of Present Illness Chief Complaint: Near syncope Primary Care Provider: Derrick Vasquez MD History obtained from patient and records. Medical history significant for CAD status post stent, symptomatic bradycardia status post PPM, CVA, hypertension, past tobacco abuse, chronic anemia (baseline hemoglobin 12-13). Last confinement September 2019 for syncope secondary to symptomatic bradycardia status post PPM. Patient woke up yesterday morning not feeling well. Feeling rundown, poor appetite throughout the day. Episodic dizziness described as lightheadedness on moving around as per patient. [place] like he was going to pass out. Patient denies chest pain, S OB, cough, fever, chills. No known recent contacts. At the ER, SBP 90s at one point. 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 Allergies Allergy/AdvReac Type Severity Reaction Status Date / Time No Known Allergies Allergy Verified 01/19/20 21:03 Home Medications Home Medications Medication Instructions Recorded Confirmed Type aspirin 325 mg PO QAM 08/15/18 01/19/20 History citalopram 20 mg PO QAM 08/15/18 01/19/20 History gabapentin 300 mg PO QAM 08/15/18 01/19/20 History lisinopril 10 mg PO QAM 08/15/18 01/19/20 History metoprolol succinate 25 mg PO QAM 08/15/18 01/19/20 History rosuvastatin 40 mg PO QAM 08/15/18 01/19/20 History Past Med/Surg History Medical History (Updated 01/19/20 @ 20:47 by Trey Galvez M.D.) CAD (coronary artery disease) Chronic anemia CVA (cerebral vascular accident) Heart attack HTN (hypertension) Pacemaker Symptomatic bradycardia Surgical History History of coronary artery stent placement 1999[facility] Family History Other Diabetes Stroke Social History Smoking Status: Former smoker Tobacco Type: Smokeless Tobacco (Dip or Chew) Do You Dip or Chew Tobacco: Yes (2 cans/week); Hx Alcohol Use: No Hx Substance Use: No Preferred Language: Ukrainian Communication Ability: Effective Cheese Pancake Roller Required: No Beliefs That Will Affect Care: None Current Living Situation: Spouse Feels Safe at Home: Yes Review of Systems Review of Systems: As per HPI, all 10 systems reviewed, all other ROS negative Physical Exam Physical Exam: GENERAL: Comfortable, pleasant, no respiratory distress SKIN: Pallor, warm HEENT: Pale palpebral conjunctivae, no ptosis, dry buccal mucosa NECK : Supple, no tenderness CHEST : CTA, no tenderness HEART : RRR, no obvious murmurs ABDOMEN: Some distention, nontender EXTREMITIES : No LE swelling/tenderness, no other conspicuous deformities noted NEUROLOGIC : Coherent, no facial asymmetry, no other gross focality Results & Data Results & Data ([facility] [place]) Vital Signs (Past 12 Hours) Vital Signs Temp Pulse Resp BP Pulse Ox 01/19/20 20:49 60 15 129/89 96 01/19/20 19:54 97 01/19/20 19:28 36.6 C 61 18 105/64 93 Laboratory Results Laboratory Results WBC 6.36 K/uL (4.8-10.8) 01/19/20 19:30 RBC 4.29 M/uL (4.7-6.1) L 01/19/20 19:30 Hgb 12.7 g/dL (14.0-18.0) L 01/19/20 19:30 POC Hgb 12.2 g/dl (14.0-18.0) L 01/19/20 19:34 Hct 38.2 % (42-52) L 01/19/20 19:30 POC Hct 36 % (42-52) L 01/19/20: MCV 89.0 fL (80-100) 01/19/20 19: MCH 29.6 pg (25-34) 01/19/20: MCHC 33.2 g/dL (32-36) 01/19/20 RDW Std Deviation 44.2 fL (36.4-46.3) 01/19/20: RDW Coeff of Renetta 13.5 % (11.5-14.5) 01/19/20: Plt Count 147 K/uL (130-400) 01/19/20 MPV 10.2 fL (7.4-10.4) 01/19/20: Immature Gran % (Auto) 0.2 % 01/19/20: Neut % (Auto) 73.8 % 01/19/20: Lymph % (Auto) 17.0 % 01/19/20: [place] % (Auto) 8.0 % 01/19/20: Eos % (Auto) 0.8 % 01/19/20: Baso % (Auto) 0.2 % 01/19/20 Neut # (Auto) 4.70 K/uL (1.4-6.5) 01/19/20: Lymph # (Auto) 1.08 K/uL (1.2-3.4) L 01/19/20: [place] # (Auto) 0.51 K/uL (0.11-0.59) 01/19/20 19: Eos # (Auto) 0.05 K/uL (0-0.5) 01/19/20: Baso # (Auto) 0.01 K/uL (0-0.2) 01/19/20: Immature Gran # (Auto) 0.01 K/uL (0.00-0.02) 01/19/20: POC Sodium 139 mmol/L (135-144) 01/19/20: Sodium 140 mmol/L (136-145) 01/19/20: POC Potassium 3.4 mmol/L (3.3-5.0) 01/19/20 19:34 Potassium 3.3 mmol/L (3.5-5.1) L 01/19/20 19:30 POC Chloride 106 mmol/L (101-112) 01/19/20 19:34 Chloride 109 mmol/L (98-107) H 01/19/20 19:30 Carbon Dioxide 21 mmol/L (21-32) 01/19/20 19:30 POC Total CO2 20 mmol/L (24-31) L 01/19/20 19:34 Anion Gap 10.0 (3-11) 01/19/20 19:30 POC Anion Gap 18.0 mmol/L (16-25) 01/19/20 19:34 POC BUN 20 mg/dl (7-18) H 01/19/20 19:34 BUN 22 mg/dl (7-18) H 01/19/20 19:30 Creatinine 2.00 mg/dl (0.6-1.4) H 01/19/20 19:30 POC Creatinine 2.0 mg/dl (0.6-1.3) H 01/19/20 19:34 Est Cr Clr Drug Dosing 36.5 ml/min 01/19/20 19:30 Est GFR ( Amer) 38.6 01/19/20 19:30 Est GFR (Non-Af Amer) 33.3 01/19/20 19:30 BUN/Creatinine Ratio 11.1 (10-20) 01/19/20 19:30 Glucose 159 mg/dl (70-99) H 01/19/20 19:30 POC Glucose (other) 159 mg/dl (70-99) H 01/19/20 19:34 Calcium 8.2 mg/dl (8.5-10.1) L 01/19/20 19:30 POC Ioniz Calcium [place] 1.13 mmol/l (1.12-1.32) 01/19/20 19:34 Magnesium 2.0 mg/dl (1.8-2.4) 01/19/20 19:30 Total Bilirubin 1.1 mg/dl (0.2-1) H 01/19/20 19:30 AST 16 U/L (15-37) 01/19/20 19:30 ALT 19 U/L (12-78) 09/15/20 19:30 Alkaline Phosphatase 65 U/L (45-117) 01/19/20 19:30 Total Creatine Kinase 172 U/L (39-308) 01/19/20 19:30 Troponin I < 0.015 ng/ml (0-0.045) 01/19/20 19:30 Total Protein 6.2 gm/dl (6.4-8.2) L 01/19/20 19: Albumin 3.2 gm/dl (3.4-5.0) L 01/19/20 19: Globulin 3.0 gm/dl (2.5-4.0) 01/19/20 19: Albumin/Globulin Ratio 1.1 (0.9-2) 01/19/20 19: Lipase 75 U/L (73-393) 01/19/20 19: TSH 3.020 uIu/ml (0.300-4.500) 01/19/20 19:30 Urine Color Yellow 01/19/20 21:17 Urine Appearance Clear (Clear) 01/19/20 21:17 Urine pH 5.5 (4.5-7.5) 01/19/20 21:17 Ur Specific [place] 1.025 (1.000-1.030) 01/19/20 21:17 Urine Protein Trace (Negative) H 01/19/20 21:17 Urine Glucose (UA) Negative (Negative) 01/19/20 21:17 Urine Ketones Trace (Negative) H 01/19/20 21:17 Urine Blood Negative (Negative) 01/19/20 21:17 Urine Nitrite Negative (Negative) 01/19/20 21:17 Urine Bilirubin Negative (Negative) 01/19/20 21:17 Urine Urobilinogen Negative (Negative) 01/19/20 21:17 Ur Leukocyte Esterase Negative (Negative) 01/19/20 21:17 Urine RBC 0-4 /hpf (0-4) 01/19/20 21:17 Urine WBC 10-30 /hpf (0-5) H 01/19/20 21:17 Ur Epithelial Cells 0-5 /lpf (0-5) 01/19/20 21:17 Urine Bacteria Negative (Negative) 01/19/20 21:17 Hyaline Casts >30 /lpf (0-5) H 01/19/20 21:17 WBC Casts 1-5 /lpf (0) H 01/19/20 21:17 Lyme Disease IgG Ab Negative (Negative) 01/19/20 19:42 Lyme Disease IgM Ab Negative (Negative) 01/19/20 19:[address] head: No acute intracranial abnormality Chest x-ray : Left hemidiaphragmatic elevation with mild left lung base opacities suggestive of atelectasis. EKG as per my interpretation : Rate 65, paced rhythm
[2020-01-19] MEDS ORDERED: TRAMADOL HCL 50 MG TABLET PO PRN (23:53)
[2020-01-19] MEDS ORDERED: ACETAMINOPHEN 325 MG TAB PO PRN (23:53)
[2020-01-19] MEDS ORDERED: PROMETHAZINE HCL 12.5 MG in SODIUM CHLORIDE 0.9% 50 ML IV PRN (23:53)
[2020-01-20 05:57] LABS: Estimated Average Glucose 111 mg/dl; Hemoglobin A1C 5.5 % (4.5-5.6)
[2020-01-20] MEDS: HEPARIN SOD 5,000 UNIT/0.5 ML VIAL SQ SCH ×3 (06:22→22:02)
[2020-01-20 07:02] LABS: Basophils # (auto) 0.01 K/uL (0-0.2); Basophils % (auto) 0.2 %; Eosinophils # (auto) 0.15 K/uL (0-0.5); Eosinophils % (auto) 2.8 %; Hematocrit (blood only) 38.2 % (42-52); Hemoglobin 12.8 g/dL (14.0-18.0); Immature Granulocytes # (auto) 0.01 K/uL (0.00-0.02); Immature Granulocytes % (auto) 0.2 %; Lymphocytes # (auto) 1.42 K/uL (1.2-3.4); Lymphocytes % (auto) 26.9 %; Mean Corpuscular Hemoglobin 30.3 pg (25-34); Mean Corpuscular Hgb Conc 33.5 g/dL (32-36); Mean Corpuscular Volume 90.3 fL (80-100); Mean Platelet Volume 10.3 fL (7.4-10.4); Monocytes # (auto) 0.56 K/uL (0.11-0.59); Monocytes % (auto) 10.6 %; Neutrophils # (auto) 3.13 K/uL (1.4-6.5); Neutrophils % (auto) 59.3 %; Platelet Count 137 K/uL (130-400); RDW Coefficient of Variation 13.8 % (11.5-14.5); RDW Standard Deviation 45.7 fL (36.4-46.3); Red Blood Count 4.23 M/uL (4.7-6.1); White Blood Count 5.28 K/uL (4.8-10.8)
[2020-01-20 07:40] LABS: BUN Creatinine Ratio 16.6 (10-20); Calcium 8.6 mg/dl (8.5-10.1); Creatinine Clr Calc Pharmacy 55.7 ml/min; Est GFR (African American) 64.4; Est GFR (Non-African American) 55.5; Potassium 4.2 mmol/L (3.5-5.1)
[2020-01-20] MEDS: METOPROLOL SUCC 25MG EXT REL TAB PO SCH (08:36)
[2020-01-20] MEDS: GABAPENTIN 300 MG CAP PO SCH (08:36)
[2020-01-20] MEDS: ROSUVASTATIN CALCIUM 20 MG TAB PO SCH (08:36)
[2020-01-20] MEDS: ASPIRIN 325 MG ECTAB PO SCH (08:36)
[2020-01-20] MEDS: CITALOPRAM 20 MG TAB PO SCH (08:37)
--- NOTE | 2020-01-20 12:21 | Hospitalist Progress Note ---
Date of Service January 20, 2020 Assessment & Plan (1) Dizziness: Near syncope Likely secondary to orthostasis from hypovolemia, ARF possible viral infection Patient was doing manual work outside for past couple of days, drank only one small bottle of water/day and some soda Hx of HTN, BP on the lower side on admission, now normalized Hx of symptomatic bradycardia status post PPM, no concerns on initial pacemaker interrogation done in the ER Medical telemetry reviewed, shows paced rhythm in the 60s Creatinine 1.3 down from 2.0, RAYMUNDO resolved with IV fluids Lisinopril held on admission Patient clinically much improved, denies any more dizziness, feels that he is back to normal Hypokalemia secondary to poor p.o. intake replaced on admission Now resolved Hx CVA as per records CAD status post stent Chronic anemia, hemoglobin at baseline Hyperglycemia rule out DM, current A1c 5.5% Past tobacco abuse DVT prophylaxis. Heparin subcu Full code Admission and Anticipated Discharge Date Admission Date: January 19, 2020 Subjective Patient is lying in bed, in no acute distress. Says that he feels well, back to his normal. States that yesterday he was quite dizzy. 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 He then woke up feeling not well and dizzy. Creatinine elevated at 2.0 in ER. After IV fluids in the hospital, creatinine much improved, to 1.3. Patient was also found hypokalemic on admission. Patient now says that he is able to get up from bed and ambulate, and denies any dizziness. Will have nursing staff walk with the patient in hallways to make sure that he feels back to his normal. Discussed discharge later today. Review of Systems Review of Systems: All systems reviewed & are unremarkable except as noted in HPI & below Constitutional: no fever and no chills Respiratory: no cough and no dyspnea Cardiovascular: no chest pain and no palpitations Gastrointestinal: no abdominal pain, no nausea and no vomiting Neurologic: no dizziness, no headache(s) and no abnormal speech Physical Exam Physical Exam: GENERAL: Elderly male lying in bed, in no acute distress, comfortable, pleasant HEENT: NC/AT, oropharynx normal, no ptosis NECK : Supple, no tenderness CHEST : CTAB, no wheezing, rhonchi or crackles HEART : RRR, no obvious murmurs ABDOMEN: Positive bowel sounds, soft, mild distention, nontender to palpation EXTREMITIES : No LE swelling/tenderness, moves extremities spontaneously SKIN: warm, dry, well perfused NEUROLOGIC : Alert and oriented x3,no facial asymmetry, speech fluent, moves all 4 extremities spontaneously and without difficulty Results & Data Results & [facility] ([facility]) Vital Signs (Past 12 Hours) Vital Signs Temp Pulse Pulse Resp BP Pulse Ox 01/20/20 11:50 36.5 C 68 20 152/88 H 96 01/20/20 06:53 36.6 C 60 18 133/86 95 01/20/20 00:51 61 01/20/20 00:30 36.3 C L 64 18 139/87 95 Laboratory Results 01/20/20 01/20/20 01/19/20 Range/Units 06:15 06:15 21:59 WBC 5.28 (4.8-10.8) K/uL RBC 4.23 L (4.7-6.1) M/uL Hgb 12.8 L (14.0-18.0) g/dL POC Hgb (14.0-18.0) g/dl Hct 38.2 L (42-52) % POC Hct (42-52) % MCV 90.3 (80-100) fL MCH 30.3 (25-34) pg MCHC 33.5 (32-36) g/dL RDW Std Deviation 45.7 (36.4-46.3) fL RDW Coeff of Renetta 13.8 (11.5-14.5) % Plt Count 137 (130-400) K/uL MPV 10.3 (7.4-10.4) fL Immature Gran % (Auto) 0.2 % Neut % (Auto) 59.3 % Lymph % (Auto) 26.9 % [place] % (Auto) 10.6 % Eos % (Auto) 2.8 % Baso % (Auto) 0.2 % Neut # (Auto) 3.13 (1.4-6.5) K/uL Lymph # (Auto) 1.42 (1.2-3.4) K/uL [place] # (Auto) 0.56 (0.11-0.59) K/uL Eos # (Auto) 0.15 (0-0.5) K/uL Baso # (Auto) 0.01 (0-0.2) K/uL Immature Gran # (Auto) 0.01 (0.00-0.02) K/uL POC Sodium (135-144) mmol/L Sodium 143 (136-145) mmol/L POC Potassium (3.3-5.0) mmol/L Potassium 4.2 D (3.5-5.1) mmol/L POC Chloride (101-112) mmol/L Chloride 113 H (98-107) mmol/L Carbon Dioxide 23 (21-32) mmol/L POC Total CO2 (24-31) mmol/L Anion Gap 7.0 (3-11) POC Anion Gap (16-25) mmol/L POC BUN (7-18) mg/dl BUN 22 H (7-18) mg/dl Creatinine 1.31 D (0.6-1.4) mg/dl POC Creatinine (0.6-1.3) mg/dl Est Cr Clr Drug Dosing 55.7 ml/min Est GFR ( Amer) 64.4 Est GFR (Non-Af Amer) 55.5 BUN/Creatinine Ratio 16.6 (10-20) Glucose 86 (70-99) mg/dl POC Glucose (other) (70-99) mg/dl Estimat Average Glucose mg/dl Hemoglobin A1c (4.5-5.6) % Calcium 8.6 (8.5-10.1) mg/dl POC Ioniz Calcium [place] (1.12-1.32) mmol/l Magnesium (1.8-2.4) mg/dl Total Bilirubin (0.2-1) mg/dl AST (15-37) U/L ALT (12-78) U/L Alkaline Phosphatase (45-117) U/L Total Creatine Kinase (39-308) U/L Troponin I (0-0.045) ng/ml Total Protein (6.4-8.2) gm/dl Albumin (3.4-5.0) gm/dl Globulin (2.5-4.0) gm/dl Albumin/Globulin Ratio (0.9-2) Lipase (73-393) U/L TSH (0.300-4.500) uIu/ml Urine Color Urine Appearance (Clear) Urine pH (4.5-7.5) Ur Specific [place] (1.000-1.030) Urine Protein (Negative) Urine Glucose (UA) (Negative) Urine Ketones (Negative) Urine Blood (Negative) Urine Nitrite (Negative) Urine Bilirubin (Negative) Urine Urobilinogen (Negative) Ur Leukocyte Esterase (Negative) Urine RBC (0-4) /hpf Urine WBC (0-5) /hpf Ur Epithelial Cells (0-5) /lpf Urine Bacteria (Negative) Hyaline Casts (0-5) /lpf WBC Casts (0) /lpf Lyme Disease IgG Ab (Negative) Lyme Disease IgM Ab (Negative) COVID-19 Eval Order COVID-19 PCR NEGATIVE (Negative) 01/19/20 01/19/20 01/19/20 Range/Units 21:59 21:17 19:42 WBC (4.8-10.8) K/uL RBC (4.7-6.1) M/uL Hgb (14.0-18.0) g/dL POC Hgb (14.0-18.0) g/dl Hct (42-52) % POC Hct (42-52) % MCV (80-100) fL MCH (25-34) pg MCHC (32-36) g/dL RDW Std Deviation (36.4-46.3) fL RDW Coeff of Renetta (11.5-14.5) % Plt Count (130-400) K/uL MPV (7.4-10.4) fL Immature Gran % (Auto) % Neut % (Auto) % Lymph % (Auto) % [place] % (Auto) % Eos % (Auto) % Baso % (Auto) % Neut # (Auto) (1.4-6.5) K/uL Lymph # (Auto) (1.2-3.4) K/uL [place] # (Auto) (0.11-0.59) K/uL Eos # (Auto) (0-0.5) K/uL Baso # (Auto) (0-0.2) K/uL Immature Gran # (Auto) (0.00-0.02) K/uL POC Sodium (135-144) mmol/L Sodium (136-145) mmol/L POC Potassium (3.3-5.0) mmol/L Potassium (3.5-5.1) mmol/L POC Chloride (101-112) mmol/L Chloride (98-107) mmol/L Carbon Dioxide (21-32) mmol/L POC Total CO2 (24-31) mmol/L Anion Gap (3-11) POC Anion Gap (16-25) mmol/L POC BUN (7-18) mg/dl BUN (7-18) mg/dl Creatinine (0.6-1.4) mg/dl POC Creatinine (0.6-1.3) mg/dl Est Cr Clr Drug Dosing ml/min Est GFR ( Amer) Est GFR (Non-Af Amer) BUN/Creatinine Ratio (10-20) Glucose (70-99) mg/dl POC Glucose (other) (70-99) mg/dl Estimat Average Glucose mg/dl Hemoglobin A1c (4.5-5.6) % Calcium (8.5-10.1) mg/dl POC Ioniz Calcium [place] (1.12-1.32) mmol/l Magnesium (1.8-2.4) mg/dl Total Bilirubin (0.2-1) mg/dl AST (15-37) U/L ALT (12-78) U/L Alkaline Phosphatase (45-117) U/L Total Creatine Kinase (39-308) U/L Troponin I (0-0.045) ng/ml Total Protein (6.4-8.2) gm/dl Albumin (3.4-5.0) gm/dl Globulin (2.5-4.0) gm/dl Albumin/Globulin Ratio (0.9-2) Lipase (73-393) U/L TSH (0.300-4.500) uIu/ml Urine Color Yellow Urine Appearance Clear (Clear) Urine pH 5.5 (4.5-7.5) Ur Specific [place] 1.025 (1.000-1.030) Urine Protein Trace H (Negative) Urine Glucose (UA) Negative (Negative) Urine Ketones Trace H (Negative) Urine Blood Negative (Negative) Urine Nitrite Negative (Negative) Urine Bilirubin Negative (Negative) Urine Urobilinogen Negative (Negative) Ur Leukocyte Esterase Negative (Negative) Urine RBC 0-4 (0-4) /hpf Urine WBC 10-30 H (0-5) /hpf Ur Epithelial Cells 0-5 (0-5) /lpf Urine Bacteria Negative (Negative) Hyaline Casts >30 H (0-5) /lpf WBC Casts 1-5 H (0) /lpf Lyme Disease IgG Ab Negative (Negative) Lyme Disease IgM Ab Negative (Negative) COVID-19 Eval Order Covid19 Done at [facility] COVID-19 PCR (Negative) 01/19/20 01/19/20 01/19/20 Range/Units 19:34 19:30 19:30 WBC (4.8-10.8) K/uL RBC (4.7-6.1) M/uL Hgb (14.0-18.0) g/dL POC Hgb 12.2 L (14.0-18.0) g/dl Hct (42-52) % POC Hct 36 L (42-52) % MCV (80-100) fL MCH (25-34) pg MCHC (32-36) g/dL RDW Std Deviation (36.4-46.3) fL RDW Coeff of Renetta (11.5-14.5) % Plt Count (130-400) K/uL MPV (7.4-10.4) fL Immature Gran % (Auto) % Neut % (Auto) % Lymph % (Auto) % [place] % (Auto) % Eos % (Auto) % Baso % (Auto) % Neut # (Auto) (1.4-6.5) K/uL Lymph # (Auto) (1.2-3.4) K/uL [place] # (Auto) (0.11-0.59) K/uL Eos # (Auto) (0-0.5) K/uL Baso # (Auto) (0-0.2) K/uL Immature Gran # (Auto) (0.00-0.02) K/uL POC Sodium 139 (135-144) mmol/L Sodium (136-145) mmol/L POC Potassium 3.4 (3.3-5.0) mmol/L Potassium (3.5-5.1) mmol/L POC Chloride 106 (101-112) mmol/L Chloride (98-107) mmol/L Carbon Dioxide (21-32) mmol/L POC Total CO2 20 L (24-31) mmol/L Anion Gap (3-11) POC Anion Gap 18.0 (16-25) mmol/L POC BUN 20 H (7-18) mg/dl BUN (7-18) mg/dl Creatinine (0.6-1.4) mg/dl POC Creatinine 2.0 H (0.6-1.3) mg/dl Est Cr Clr Drug Dosing ml/min Est GFR ( Amer) Est GFR (Non-Af Amer) BUN/Creatinine Ratio (10-20) Glucose (70-99) mg/dl POC Glucose (other) 159 H (70-99) mg/dl Estimat Average Glucose 111 mg/dl Hemoglobin A1c 5.5 (4.5-5.6) % Calcium (8.5-10.1) mg/dl POC Ioniz Calcium [place] 1.13 (1.12-1.32) mmol/l Magnesium (1.8-2.4) mg/dl Total Bilirubin (0.2-1) mg/dl AST (15-37) U/L ALT (12-78) U/L Alkaline Phosphatase (45-117) U/L Total Creatine Kinase 172 (39-308) U/L Troponin I (0-0.045) ng/ml Total Protein (6.4-8.2) gm/dl Albumin (3.4-5.0) gm/dl Globulin (2.5-4.0) gm/dl Albumin/Globulin Ratio (0.9-2) Lipase (73-393) U/L TSH (0.300-4.500) uIu/ml Urine Color Urine Appearance (Clear) Urine pH (4.5-7.5) Ur Specific [place] (1.000-1.030) Urine Protein (Negative) Urine Glucose (UA) (Negative) Urine Ketones (Negative) Urine Blood (Negative) Urine Nitrite (Negative) Urine Bilirubin (Negative) Urine Urobilinogen (Negative) Ur Leukocyte Esterase (Negative) Urine RBC (0-4) /hpf Urine WBC (0-5) /hpf Ur Epithelial Cells (0-5) /lpf Urine Bacteria (Negative) Hyaline Casts (0-5) /lpf WBC Casts (0) /lpf Lyme Disease IgG Ab (Negative) Lyme Disease IgM Ab (Negative) COVID-19 Eval Order COVID-19 PCR (Negative) 01/19/20 01/19/20 Range/Units 19:30 19:30 WBC 6.36 (4.8-10.8) K/uL RBC 4.29 L (4.7-6.1) M/uL Hgb 12.7 L (14.0-18.0) g/dL POC Hgb (14.0-18.0) g/dl Hct 38.2 L (42-52) % POC Hct (42-52) % MCV 89.0 (80-100) fL MCH 29.6 (25-34) pg MCHC 33.2 (32-36) g/dL RDW Std Deviation 44.2 (36.4-46.3) fL RDW Coeff of Renetta 13.5 (11.5-14.5) % Plt Count 147 (130-400) K/uL MPV 10.2 (7.4-10.4) fL Immature Gran % (Auto) 0.2 % Neut % (Auto) 73.8 % Lymph % (Auto) 17.0 % [place] % (Auto) 8.0 % Eos % (Auto) 0.8 % Baso % (Auto) 0.2 % Neut # (Auto) 4.70 (1.4-6.5) K/uL Lymph # (Auto) 1.08 L (1.2-3.4) K/uL [place] # (Auto) 0.51 (0.11-0.59) K/uL Eos # (Auto) 0.05 (0-0.5) K/uL Baso # (Auto) 0.01 (0-0.2) K/uL Immature Gran # (Auto) 0.01 (0.00-0.02) K/uL POC Sodium (135-144) mmol/L Sodium 140 (136-145) mmol/L POC Potassium (3.3-5.0) mmol/L Potassium 3.3 L (3.5-5.1) mmol/L POC Chloride (101-112) mmol/L Chloride 109 H (98-107) mmol/L Carbon Dioxide 21 (21-32) mmol/L POC Total CO2 (24-31) mmol/L Anion Gap 10.0 (3-11) POC Anion Gap (16-25) mmol/L POC BUN (7-18) mg/dl BUN 22 H (7-18) mg/dl Creatinine 2.00 H (0.6-1.4) mg/dl POC Creatinine (0.6-1.3) mg/dl Est Cr Clr Drug Dosing 36.5 ml/min Est GFR ( Amer) 38.6 Est GFR (Non-Af Amer) 33.3 BUN/Creatinine Ratio 11.1 (10-20) Glucose 159 H (70-99) mg/dl POC Glucose (other) (70-99) mg/dl Estimat Average Glucose mg/dl Hemoglobin A1c (4.5-5.6) % Calcium 8.2 L (8.5-10.1) mg/dl POC Ioniz Calcium [place] (1.12-1.32) mmol/l Magnesium 2.0 (1.8-2.4) mg/dl Total Bilirubin 1.1 H (0.2-1) mg/dl AST 16 (15-37) U/L ALT 19 (12-78) U/L Alkaline Phosphatase 65 (45-117) U/L Total Creatine Kinase (39-308) U/L Troponin I < 0.015 (0-0.045) ng/ml Total Protein 6.2 L (6.4-8.2) gm/dl Albumin 3.2 L (3.4-5.0) gm/dl Globulin 3.0 (2.5-4.0) gm/dl Albumin/Globulin Ratio 1.1 (0.9-2) Lipase 75 (73-393) U/L TSH 3.020 (0.300-4.500) uIu/ml Urine Color Urine Appearance (Clear) Urine pH (4.5-7.5) Ur Specific [place] (1.000-1.030) Urine Protein (Negative) Urine Glucose (UA) (Negative) Urine Ketones (Negative) Urine Blood (Negative) Urine Nitrite (Negative) Urine Bilirubin (Negative) Urine Urobilinogen (Negative) Ur Leukocyte Esterase (Negative) Urine RBC (0-4) /hpf Urine WBC (0-5) /hpf Ur Epithelial Cells (0-5) /lpf Urine Bacteria (Negative) Hyaline Casts (0-5) /lpf WBC Casts (0) /lpf Lyme Disease IgG Ab (Negative) Lyme Disease IgM Ab (Negative) COVID-19 Eval Order COVID-19 PCR (Negative) Medications Administered Current Inpatient Medications Acetaminophen (Acetaminophen 325 Mg Tab) 650 mg PO Q4H PRN PRN Reason: Pain or Fever Stop: 02/18/20 23:52 Aspirin (Aspirin 325 Mg Ectab) 325 mg PO [facility] Stop: 02/19/20 08:59 Last Admin: 01/20/20 08:36 Dose: 325 mg Documented by: Citalopram Hydrobromide (Citalopram 20 Mg Tab) 20 mg PO [facility] Stop: 02/19/20 08:59 Last Admin: 01/20/20 08:37 Dose: 20 mg Documented by: Gabapentin (Gabapentin 300 Mg Cap) 300 mg PO [facility] Stop: 02/19/20 08:59 Last Admin: 01/20/20 08:36 Dose: 300 mg Documented by: Heparin Sodium (Porcine) (Heparin Sod 5,000 Unit/0.5 Ml Vial) 5,000 units SQ Q[facility] Stop: 02/19/20 05:59 Last Admin: 01/20/20 06:22 Dose: 5,000 units Documented by: Promethazine HCl 12.5 mg/ (Sodium Chloride) 50.5 mls @ 202 mls/hr IV Q6H PRN PRN Reason: Nausea And Vomiting Stop: 02/18/20 23:52 Metoprolol Succinate (Metoprolol Succ 25mg Ext Rel Tab) 25 mg PO [facility] Stop: 02/19/20 08:59 Last Admin: 01/20/20 08:36 Dose: 25 mg Documented by: Rosuvastatin Calcium (Rosuvastatin Calcium 20 Mg Tab) 40 mg PO [facility] Stop: 02/19/20 08:59 Last Admin: 01/20/20 08:36 Dose: 40 mg Documented by: Tramadol HCl (Tramadol Hcl 50 Mg Tablet) 25 mg PO Q4H PRN PRN Reason: Pain Stop: 02/18/20 23:52
--- NOTE | 2020-01-20 13:02 | Discharge Summary ---
Date of Service January 20, 2020 Admission HPI Per Admitting Provider History obtained from patient and records. Medical history significant for CAD status post stent, symptomatic bradycardia status post PPM, CVA, hypertension, past tobacco abuse, chronic anemia (baseline hemoglobin 12-13). Last confinement September 2019 for syncope secondary to symptomatic bradycardia status post PPM. Patient woke up yesterday morning not feeling well. Feeling rundown, poor appetite throughout the day. Episodic dizziness described as lightheadedness on moving around as per patient. [place] like he was going to pass out. Patient denies chest pain, S OB, cough, fever, chills. No known recent contacts. At the ER, SBP 90s at one point. 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 [employer] Admission Exam Per Admitting Provider GENERAL: Comfortable, pleasant, no respiratory distress SKIN: Pallor, warm HEENT: Pale palpebral conjunctivae, no ptosis, dry buccal mucosa NECK : Supple, no tenderness CHEST : CTA, no tenderness HEART : RRR, no obvious murmurs ABDOMEN: Some distention, nontender EXTREMITIES : No LE swelling/tenderness, no other conspicuous deformities noted NEUROLOGIC : Coherent, no facial asymmetry, no other gross focality Principal Diagnosis Dizziness, near syncope from dehydration, RAYMUNDO and hypokalemia Discharge Exam GENERAL: Elderly male lying in bed, in no acute distress, comfortable, pleasant HEENT: NC/AT, oropharynx normal, no ptosis NECK : Supple, no tenderness CHEST : CTAB, no wheezing, rhonchi or crackles HEART : RRR, no obvious murmurs ABDOMEN: Positive bowel sounds, soft, mild distention, nontender to palpation EXTREMITIES : No LE swelling/tenderness, moves extremities spontaneously SKIN: warm, dry, well perfused NEUROLOGIC : Alert and oriented x3,no facial asymmetry, speech fluent, moves all 4 extremities spontaneously and without difficulty Discharge Data Allergies Allergy/AdvReac Type Severity Reaction Status Date / Time No Known Allergies Allergy Verified 01/19/20 21:03 Consultations 01/19/20 21:26 ED Decision to Admit Stat Ordered Studies 01/19/20 19:24 CT head/brain wo con Stat FINDINGS: No acute intracranial hemorrhage, midline shift, intracranial mass, hydrocephalus, territorial ischemia or abnormal extra-axial collection. Age- related involutional changes with ex vacuo ventriculomegaly. Patchy white matter hypodensities suggest chronic microvascular ischemic disease. Remote subcentimeter lacunar infarct of the left thalamus. The calvarium is intact. Mastoid air cells are generally clear. There is minimal mucosal thickening of the ethmoid air cells and left maxillary sinus. IMPRESSION: No acute intracranial abnormality. Hospital Course (1) Dizziness: Near syncope Likely secondary to orthostasis from hypovolemia, ARF possible viral infection Patient was doing manual work outside for past couple of days, drank only one small bottle of water/day and some soda Hx of HTN, BP on the lower side on admission, now normalized Hx of symptomatic bradycardia status post PPM, no concerns on initial pacemaker interrogation done in the ER Medical telemetry reviewed, shows paced rhythm in the 60s Creatinine 1.3 down from 2.0, RAYMUNDO resolved with IV fluids Lisinopril held on admission Patient clinically much improved, denies any more dizziness, feels that he is back to normal Hypokalemia secondary to poor p.o. intake replaced on admission Now resolved Hx CVA as per records CAD status post stent Chronic anemia, hemoglobin at baseline Hyperglycemia rule out DM, current A1c 5.5% Past tobacco abuse Total Time Total Time Spent Total Time Spent (In Minutes): 35 Total Time Includes: Examination of the Patient, Discharge Planning and Medication Reconciliation Discharge Plan Discharge Items Patient Disposition: Home - Self-Care Reason For Visit: ARF, COVID NEG, DC ISOL PREC Discharge Diagnosis: Dizziness, near syncope from dehydration, RAYMUNDO and hypokalemia Activity: Per Instructions section Non-emergency contact: Primary Care Provider Call non-emergency contact if: you have any medication questions and your symptoms worsen Follow-up/Referrals: Derrick Vasquez MD [Primary Care Provider] - 01/27/20 11:00 am (Date & Time 01/27/2020 11:00 AM Provider Derrick Vasquez MD [facility] ) Diet: Heart Healthy Addtl Attending Provider Instructions: Follow-up with your primary care doctor within 1 week. The appointment was set up for you for January 26 at 11 AM. Recommend to be well-hydrated, drinking water and possibly Gatorade, not much soda, especially when manually working. Do not take your lisinopril tomorrow and restart taking it on Saturday. Recommend to rest and progressively get back to your regular activity. Pending Studies at Discharge: No Stand-Alone Forms: [facility], Smoking Cessation Medications and DC Order Prescriptions: Continued citalopram 20 mg Tablet 20 mg PO QAM RF: 0 aspirin 325 mg Tablet,Delayed Release (Dr/Ec) 325 mg PO QAM RF: 0 lisinopril 10 mg Tablet 10 mg PO QAM RF: 0 gabapentin 300 mg Capsule 300 mg PO QAM RF: 0 metoprolol succinate 25 mg Tablet Extended Release 24 Hr 25 mg PO QAM RF: 0 rosuvastatin 40 mg Tablet 40 mg PO QAM RF: 0 Discharge Orders: Discharge Order (Routine); Ordered 01/20/20 Ordered By: Roel Tabares Admission Data Admit Date/Time: 01/19/20 23:14 Attending Provider: Roel Tabares Admit Provider: Héctor Reilly Primary Care Provider: Derrick Vasquez Other Providers: Héctor Reilly
--- NOTE | 2020-01-20 13:13 | Electrocardiogram Report ---
Test Reason : Blood Pressure : / mmHG Vent. Rate : 065 BPM Atrial Rate : 065 BPM P-R Int : 198 ms QRS Dur : 102 ms QT Int : 430 ms P-R-T Axes : -27 016 014 degrees QTc Int : 447 ms Atrial-paced rhythm Abnormal ECG When compared with ECG of 16-SEP-2019 12:04, No significant change was found Confirmed by Ge Taylor ([id number]) on 01/20/2020 1:12:42 PM Referred By: REFERRED SELF Confirmed By:Ge Taylor
[2020-01-21] MEDS: HEPARIN SOD 5,000 UNIT/0.5 ML VIAL SQ SCH (05:40)
[2020-01-21 07:16] VITALS: BP 150/87; TEMP 97.7
[2020-01-21] MEDS: GABAPENTIN 300 MG CAP PO SCH (09:00)
[2020-01-21] MEDS: ROSUVASTATIN CALCIUM 20 MG TAB PO SCH (09:00)
[2020-01-21] MEDS: METOPROLOL SUCC 25MG EXT REL TAB PO SCH (09:00)
[2020-01-21] MEDS: ASPIRIN 325 MG ECTAB PO SCH (09:00)
[2020-01-21] MEDS: CITALOPRAM 20 MG TAB PO SCH (09:00)
[2020-01-21 10:45] VITALS: O2SAT 97
--- NOTE | 2020-01-21 11:48 | Hospitalist Progress Note ---
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 was doing manual work outside for past couple of days, drank only one small bottle of water/day and some soda He feels like passing out prior to admission but no history of loss of consciousness Blood pressure noted to be low at systolic 90 on admission With intravenous fluid has been feeling a lot better since admission Denies any symptoms this morning Hx of symptomatic bradycardia status post PPM, no concerns on initial pacemaker interrogation done in the ER CAD status post stent No acute cardiac issues Hypertension Lisinopril held on admission Will restart lisinopril on discharge RAYMUNDO likely secondary to dehydration Hypokalemia secondary to poor p.o. intake replaced on admission Now resolved Creatinine normalized Hx CVA as per records No acute issues Chronic anemia, hemoglobin at baseline Hyperglycemia rule out DM, current A1c 5.5% Past tobacco abuse Medically stable to be discharged this afternoon Admission and Anticipated Discharge Date Admission Date: January 19, 2020 Subjective 01/21/2020 The patient was seen and examined in medical floor He has been feeling a lot better today and denies any symptoms He is ready to be discharged this afternoon Review of Systems Review of Systems: All systems reviewed and are unremarkable except as noted below Neurologic: no generalized weakness and no confusion Alert, awake and oriented x3 Physical Exam Physical Exam: Lying in bed comfortably Constitutional: well developed and well nourished; no acute distress and not ill appearing Eyes: PERRL, conjunctivae normal, anicteric sclerae ENMT: external ear and nose normal, oropharynx normal Neck: trachea midline, no thyromegaly Respiratory: normal respiratory effort; no respiratory distress Auscultation: lungs clear to auscultation bilaterally Cardiovascular: Rate/Rhythm: regular rate and regular rhythm Heart Sounds: no murmur Gastrointestinal (Abdomen): Inspection/Auscultation: abdomen normal to inspection and normal bowel sounds; abdomen not distended Percussion/Palpation: abdomen soft; abdomen nontender Musculoskeletal: No acute arthritis involving any joints Neurologic: moves all extremities; no focal motor deficits Alert, awake and oriented x3 Results & Data Results & Data ([facility]) Vital Signs (Past 12 Hours) Vital Signs Temp Pulse Pulse Pulse Resp BP Pulse Ox 01/21/20 10:55 36.5 C 59 L 63 18 150/87 H 97 01/21/20 10:36 97 01/21/20 07:19 60 01/21/20 07:15 36.5 C 63 18 150/87 H 95 01/21/20 04:01 60 01/21/20 03:25 36.8 C 60 18 124/79 95 Medications Administered Current Inpatient Medications Acetaminophen (Acetaminophen 325 Mg Tab) 650 mg PO Q4H PRN PRN Reason: Pain or Fever Stop: 02/18/20 23:52 Aspirin (Aspirin 325 Mg Ectab) 325 mg PO [facility] Stop: 02/19/20 08:59 Last Admin: 01/21/20 09:00 Dose: 325 mg Documented by: Citalopram Hydrobromide (Citalopram 20 Mg Tab) 20 mg PO [facility] Stop: 02/19/20 08:59 Last Admin: 01/21/20 09:00 Dose: 20 mg Documented by: Gabapentin (Gabapentin 300 Mg Cap) 300 mg PO [facility] Stop: 02/19/20 08:59 Last Admin: 01/21/20 09:00 Dose: 300 mg Documented by: Heparin Sodium (Porcine) (Heparin Sod 5,000 Unit/0.5 Ml Vial) 5,000 units SQ Q8 [facility] Stop: 02/19/20 05:59 Last Admin: 01/21/20 05:40 Dose: 5,000 units Documented by: Promethazine HCl 12.5 mg/ (Sodium Chloride) 50.5 mls @ 202 mls/hr IV Q6H PRN PRN Reason: Nausea And Vomiting Stop: 02/18/20 23:52 Metoprolol Succinate (Metoprolol Succ 25mg Ext Rel Tab) 25 mg PO [facility] Stop: 02/19/20 08:59 Last Admin: 01/21/20 09:00 Dose: 25 mg Documented by: Rosuvastatin Calcium (Rosuvastatin Calcium 20 Mg Tab) 40 mg PO [facility] Stop: 02/19/20 08:59 Last Admin: 01/21/20 09:00 Dose: 40 mg Documented by: Tramadol HCl (Tramadol Hcl 50 Mg Tablet) 25 mg PO Q4H PRN PRN Reason: Pain Stop: 02/18/20 23:52
[2020-01-21 14:12] VITALS: PULSE 82
== END 2020-01-21 14:26 | disposition home or self-care (01) ==
LOC: 2W 19:21 → ED 19:21 → SUATTDRO 23:14 → 2W 23:40
DX: Z95.0 Presence of cardiac pacemaker; Z86.73 Personal history of transient ischemic attack (TIA), and cerebral infarction without residual deficits; I25.10 Atherosclerotic heart disease of native coronary artery without angina pectoris; F17.220 Nicotine dependence, chewing tobacco, uncomplicated; R00.1 Bradycardia, unspecified; R55 Syncope and collapse; Z79.82 Long term (current) use of aspirin; D64.9 Anemia, unspecified; R42 Dizziness and giddiness; N17.9 Acute kidney failure, unspecified; E87.6 Hypokalemia; Z82.49 Family history of ischemic heart disease and other diseases of the circulatory system; E86.0 Dehydration; Z95.5 Presence of coronary angioplasty implant and graft; Z79.899 Other long term (current) drug therapy